=== PATIENT | female | born 1965 | race Caucasian/White ===

== ENCOUNTER 2016-12-25 05:10 | Emergency (ER) | payer OTHER ==
[2016-12-25 05:10] VITALS: BMI 31.9
[2016-12-25 05:33] VITALS: BP 136/84; PULSE 96; RESP 18; TEMP 97.7; O2SAT 100
--- NOTE | 2016-12-25 06:52 | ED PDOC ---
Arrival/HPI - General Chief Complaint: Finger,Hand,&Wrist Time Seen by Provider: 12/25/16 05:54 Historian: Patient - History of Present Illness Narrative History of Present Illness (Text): 12/25/16 06:49 51 y.o. female who is here in the ED because a few days ago, she injured her R foot and had an x-ray done. She was called back to the ED because the x-ray revealed a R 5th toe fracture, where she has pain. No other injuries. Past Medical History - Infectious Disease Hx of Infectious Diseases: None - Tetanus Immunization Tetanus Immunization: Unknown - Cardiac Hx Cardiac Disorders: Yes (hypotension) - Pulmonary Hx Respiratory Disorders: No - Neurological Hx Neurological Disorder: Yes Hx Dizziness: Yes - HEENT Hx HEENT Disorder: No - Renal Hx Renal Disorder: No - Endocrine/Metabolic Hx Endocrine Disorders: Yes Other/Comment: thyroid CA with thyroidectomy - Hematological/Oncological Hx Blood Disorders: Yes Hx Cancer: Yes (thyroid cancer) - Integumentary Hx Dermatological Disorder: No - Musculoskeletal/Rheumatological Hx Musculoskeletal Disorders: No Hx Falls: Yes - Gastrointestinal Hx Gastrointestinal Disorders: No - Genitourinary/Gynecological Hx Genitourinary Disorders: No - Psychiatric Hx Psychophysiologic Disorder: Yes Hx Anxiety: Yes Hx Depression: Yes Hx Substance Use: No - Surgical History Hx Appendectomy: Yes Hx Hysterectomy: Yes Other/Comment: tonsilectomy, thyroidectomy - Anesthesia Hx Anesthesia: Yes Hx Anesthesia Reactions: No Hx Malignant Hyperthermia: No - Suicidal Assessment Feels Threatened In Home Enviroment: No Family/Social History Family/Social History: Unknown Family HX Smoking Status: Former Smoker Hx Alcohol Use: No Hx Substance Use: No Hx Substance Use Treatment: No Allergies/Home Meds Allergies/Adverse Reactions: Allergies aspirin Allergy (Verified 08/03/16 22:55) RASH Penicillins Allergy (Verified 08/03/16 22:55) RASH Home Medications: Home Meds Medication Instructions Recorded Confirmed Levothyroxine [Synthroid] 175 mcg PO DAILY 05/22/16 08/03/16 Sertraline [Zoloft] 100 mg PO DAILY 05/22/16 08/03/16 Celecoxib [celeBREX] 100 mg PO PRN PRN 08/23/16 08/24/16 Review of Systems - Review of Systems Constitutional: Normal Musculoskeletal: Other (R 5th toe pain) Physical Exam Vital Signs Temp Pulse Resp BP Pulse Ox 04/13/17 05:27 97.7 F 96 H 18 136/84 100 Temperature: Afebrile Blood Pressure: Normal Pulse: Regular Respiratory Rate: Normal Appearance: Positive for: Well-Appearing, Non-Toxic, Comfortable Pain Distress: None Mental Status: Positive for: Alert and Oriented X 3 - Systems Exam Head: Present: Atraumatic, Normocephalic Lower Extremity: Present: Other (R 5th toe with ttp and mild swelling) Medical Decision Making ED Course and Treatment: 12/25/16 06:51 Patient with x-ray read on 12/24 showing minimally disp R 5th toe fx - martinez- taped to 4th toe - will d/c on pain meds and f/u podiatry. Disposition/Present on Arrival - Present on Arrival Any Indicators Present on Arrival: No History of DVT/PE: No History of Uncontrolled Diabetes: No Urinary Catheter: No History of Decub. Ulcer: No History Surgical Site Infection Following: None - Disposition Have Diagnosis and Disposition been Completed?: Yes Diagnosis: Fracture of fifth toe, right, closed Disposition: HOME/ ROUTINE Disposition Time: 06:55 Patient Plan: Discharge Condition: GOOD Discharge Instructions (ExitCare): Toe Fracture (ED) Additional Instructions: Keep toe martinez-taped and use open-toe shoe. Tramadol for pain and f/u podiatry. Return to the emergency department if any new concerning symptoms. Prescriptions: traMADol [Ultram] 1 tab PO Q8H PRN #20 tab PRN Reason: Pain, Severe (8-10) Referrals: Cammie Hodge DPM [Staff Provider] - Follow up with primary
== END 2016-12-25 06:54 | disposition home or self-care (01) ==
LOC: ED 05:10
DX: S92.501A Displaced unspecified fracture of right lesser toe(s), initial encounter for closed fracture (principal); X58.XXXA Exposure to other specified factors, initial encounter

== ENCOUNTER 2017-04-03 15:55 | Emergency (ER) | payer OTHER ==
[2017-04-03 15:55] VITALS: BMI 31.9
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
[2017-04-03] MEDS ORDERED: Sodium Chloride 0.9% 1,000 ML IV SCH (16:15)
[2017-04-03 16:16] VITALS: TEMP 98.1
[2017-04-03 17:09] LABS: BASO # 0.01 K/mm3 (0.0-2.0); BASO % 0.2 % (0.0-3.0); EOS # 0.2 (0.0-0.7); GRAN # 3.85 (1.4-6.5); GRAN % 58.2 % (50.0-68.0); HEMOGLOBIN 12.6 gm/dL (12.0-16.0); LYMPH % 29.8 % (22.0-35.0); MEAN CELL VOLUME 94.6 fL (80.0-105.0); MEAN CORPUSCULAR HGB CONC 32.7 g/dl (31.0-37.0); MEAN PLATELET VOLUME 11.3 fl (7.0-11.0); MONO # 0.6 (0.1-0.6); MONO % 8.8 % (1.0-6.0); PLATELET COUNT 228 10^3/uL (120.0-450.0); RBC 4.07 10^6/uL (3.5-6.1); RED CELL DISTRIBUTION WIDTH 12.6 % (11.5-14.5); WHITE BLOOD COUNT 6.6 10^3/ul (4.5-11.0)
[2017-04-03 17:12] LABS: ALB/GLOB RATIO 1.3 (1.1-1.8); ALT/SGPT 19 U/L (7-56); AST/SGOT 23 U/L (15-39); BLOOD UREA NITROGEN 14 mg/dL (7-21); CALCIUM 9.1 mg/dL (8.4-10.5); GFR AFRICAN-AMERICAN > 60; GFR NON-AFRICAN AMERICAN > 60; MAGNESIUM 2.1 mg/dL (1.7-2.2)
[2017-04-03 17:23] LABS: B-TYPE NATRIURETIC PEPTIDE 69.8 pg/mL (0-450)
[2017-04-03 17:25] LABS: TROPONIN I < 0.01 ng/mL
[2017-04-03 17:28] LABS: FREE T4 1.1 ng/dL (0.78-2.19)
--- NOTE | 2017-04-03 18:18 | RAD ---
HISTORY: chest pain and shortness of breath. COMPARISON: Chest x-ray performed 05/22/16 TECHNIQUE: Chest, one view. FINDINGS: Examination limited by habitus. LUNGS: No focal consolidation. Please note that chest x-ray has limited sensitivity for the detection of pulmonary masses. PLEURA: No significant pleural effusion identified. No definite pneumothorax . CARDIOVASCULAR: The cardiomediastinal silhouette appears within normal limits of size. OSSEOUS STRUCTURES: No acute osseous abnormality identified. VISUALIZED UPPER ABDOMEN: Unremarkable. OTHER FINDINGS: None. IMPRESSION: No focal consolidation, significant pleural effusion, or definite pneumothorax identified.
[2017-04-03 18:58] VITALS: BP 121/61; PULSE 75; RESP 18; O2SAT 97
--- NOTE | 2017-04-03 20:32 | CARD ---
APPROVED REPORT EKG Measurement Heart [id number] <Conclusion> Normal sinus rhythm Normal ECG
== END 2017-04-03 19:06 | disposition left against medical advice (07) ==
LOC: ED 15:55
DX: R07.9 Chest pain, unspecified (principal); R06.02 Shortness of breath; Z91.19 Patient's noncompliance with other medical treatment and regimen
CPT/HCPCS: 71010; 80053; 82550; 83615; 83735; 83880; 84439; 84443; 84484; 85025; 93005; 96374; 99285; J2060; J7040

== ENCOUNTER 2017-04-05 17:45 | Emergency (ER) | payer OTHER ==
[2017-04-05 17:55] VITALS: BMI 34.3
[2017-04-05 18:01] VITALS: TEMP 98.2
[2017-04-05] MEDS ORDERED: DiphenhydrAMINE 50 mg/ml Inj IVP STA (18:25)
--- NOTE | 2017-04-05 18:25 | ED PDOC ---
Arrival/HPI - General Chief Complaint: Chest Pain Time Seen by Provider: 04/05/17 17:50 Historian: Patient - History of Present Illness Narrative History of Present Illness (Text): 04/05/17 18:10 52 y/o female, pmh including hypothyroidism/hyperlipidemia/bilateral ICA stenosis 20-39%, psychiatric history including anxiety/depression, allergic to aspirin and penicillin, c/o chest pain and shortness of breath started this afternoon while watching television. Patient admits a similar symptoms in the past. Patient was seen in this ED x 2 days ago, but she signed AMA. Patient denies neck pain, hemoptysis, recent travel, sick contact, dizziness, or abnormal gait. Patient admits feeling sad, overwhelmed, and things that she used to do enjoy, they are not interesting anymore. Denies SI, HI, hallucination, or paranoia Time/Duration: Prior to Arrival Quality: Aching, Stabbing Context: Home Past Medical History - Provider Review Nursing Documentation Reviewed: Yes - Infectious Disease Hx of Infectious Diseases: None - Tetanus Immunization Tetanus Immunization: Unknown - Cardiac Hx Cardiac Disorders: Yes (hypotension) - Pulmonary Hx Respiratory Disorders: No - Neurological Hx Neurological Disorder: Yes Hx Dizziness: Yes - HEENT Hx HEENT Disorder: No - Renal Hx Renal Disorder: No - Endocrine/Metabolic Hx Endocrine Disorders: Yes Other/Comment: thyroid CA with thyroidectomy - Hematological/Oncological Hx Blood Disorders: Yes Hx Cancer: Yes (thyroid cancer) - Integumentary Hx Dermatological Disorder: No - Musculoskeletal/Rheumatological Hx Musculoskeletal Disorders: No Hx Falls: Yes - Gastrointestinal Hx Gastrointestinal Disorders: No - Genitourinary/Gynecological Hx Genitourinary Disorders: No - Psychiatric Hx Psychophysiologic Disorder: Yes Hx Anxiety: Yes Hx Depression: Yes Hx Substance Use: No - Surgical History Hx Appendectomy: Yes Hx Hysterectomy: Yes Other/Comment: tonsilectomy, thyroidectomy - Anesthesia Hx Anesthesia: Yes Hx Anesthesia Reactions: No Hx Malignant Hyperthermia: No - Suicidal Assessment Feels Threatened In Home Enviroment: No Family/Social History - Physician Review Nursing Documentation Reviewed: Yes Family/Social History: No Known Family HX Smoking Status: Former Smoker Hx Alcohol Use: No Hx Substance Use: No Hx Substance Use Treatment: No Allergies/Home Meds Allergies/Adverse Reactions: Allergies Penicillins Allergy (Verified 04/05/17 17:58) RASH aspirin Adverse Reaction (Verified 04/05/17 17:58) .bleeding Home Medications: Home Meds Medication Instructions Recorded Confirmed Levothyroxine [Synthroid] 150 mcg PO DAILY 05/22/16 04/05/17 Sertraline [Zoloft] 100 mg PO DAILY 05/22/16 04/05/17 Atorvastatin [Lipitor] 0 mg PO DIN 04/05/17 04/05/17 Ibuprofen [Advil] 0 mg PO DAILY 04/05/17 04/05/17 Review of Systems - Review of Systems Constitutional: Normal. absent: Fatigue, Weight Change, Fevers, Night Sweats Eyes: Normal ENT: Normal Respiratory: SOB. absent: Cough Cardiovascular: Chest Pain. absent: Palpitations, Edema, Calf Pain Gastrointestinal: Normal. absent: Abdominal Pain, Nausea, Vomiting Genitourinary Female: Normal. absent: Dysuria, Frequency, Hematuria Musculoskeletal: Normal Skin: Normal. absent: Rash Neurological: Normal. absent: Headache, Dizziness Endocrine: Normal Hemo/Lymphatic: Normal Psychiatric: Normal Physical Exam Vital Signs Temp Pulse Resp BP Pulse Ox 04/05/17 20:34 64 16 107/65 96 04/05/17 18:40 68 18 125/80 95 04/05/17 18:00 98.2 F 71 18 124/73 96 04/05/17 17:57 98.2 F 71 18 124/73 93 L Temperature: Afebrile Blood Pressure: Normal Pulse: Regular Respiratory Rate: Normal Appearance: Positive for: Well-Appearing, Non-Toxic, Comfortable Pain Distress: None Mental Status: Positive for: Alert and Oriented X 3 - Systems Exam Head: Present: Atraumatic, Normocephalic Pupils: Present: PERRL Extroacular Muscles: Present: EOMI Conjunctiva: Present: Normal Mouth: Present: Moist Mucous Membranes Neck: Present: Normal Range of Motion Respiratory/Chest: Present: Clear to Auscultation, Good Air Exchange, Tender to Palpation ((+) mild left costalchondral tenderness on palpation. pain is not the same reported as per patient). No: Respiratory Distress, Accessory Muscle Use Cardiovascular: Present: Regular Rate and Rhythm, Normal S1, S2. No: Murmurs Abdomen: Present: Normal Bowel Sounds. No: Tenderness, Distention, Peritoneal Signs Back: Present: Normal Inspection Upper Extremity: Present: Normal Inspection, Normal ROM, NORMAL PULSES, Neurovascularly Intact, Capillary Refill < 2s. No: Cyanosis, Edema Lower Extremity: Present: Normal Inspection, NORMAL PULSES, Normal ROM, Neurovascularly Intact, Capillary Refill < 2 s. No: Edema, CALF TENDERNESS, Temperature Abnormalties Neurological: Present: GCS=15, CN II-XII Intact, Speech Normal, Motor Func Grossly Intact, Normal Sensory Function, Normal Cerebellar Funct, Gait Normal Skin: Present: Warm, Dry, Normal Color. No: Rashes Psychiatric: Present: Alert, Oriented x 3, Anxious, Depressed Mood. No: Suicidal Ideation, Homicidal Ideation Medical Decision Making ED Course and Treatment: 04/05/17 20:59 Re-evaluation. Patient feels better. Discussed results and plan with patient who expresses understanding. All questions answered and there is agreement with the plan to discharge home with instructions. Patient stable for discharge. Return if symptoms persist or worsen. Troponin and rest of labs are unremarkable. Patient was seen by PES who gave patient referral to [facility] Re-evaluation Time: 20:59 Reassessment Condition: Re-examined, Improved - Lab Interpretations Lab Results: 04/05/17 17:55 04/05/17 17:55 Lab Results 04/05/17 17:55: Alcohol, Quantitative < 10 04/05/17 17:55: Salicylates < 1 L, Acetaminophen < 10.0 L 04/05/17 17:55: Sodium 139, Potassium 3.7, Chloride 104, Carbon Dioxide 25, Anion Gap 14, BUN 12, Creatinine 0.7, Est GFR ( Amer) > 60, Est GFR (Non- Af Amer) > 60, Random Glucose 90, Calcium 8.7, Magnesium 1.9, Total Bilirubin 1.1, AST 17, ALT 19, Alkaline Phosphatase 37 L, Lactate Dehydrogenase 359, Total Creatine Kinase 33 L, Troponin I < 0.01, NT-Pro-B Natriuret Pep 115, Total Protein 7.0, Albumin 4.0, Globulin 3.1, Albumin/Globulin Ratio 1.3 04/05/17 17:55: D-Dimer, Quantitative 0.39 04/05/17 17:55: WBC 6.6, RBC 3.99, Hgb 12.4, Hct 37.7, MCV 94.5, MCH 31.1, MCHC 32.9, RDW 12.5, Plt Count 213, MPV 11.6 H, Gran % 54.9, Lymph % (Auto) 34.2, [place] % (Auto) 7.2 H, Eos % (Auto) 3.5, Baso % (Auto) 0.2, Gran # 3.65, Lymph # 2.3, [place] # 0.5, Eos # 0.2, Baso # 0.01 I have reviewed the lab results: Yes Interpretation: No clinic. lab abnormalty - RAD Interpretation Radiology Orders: 04/05/17 18:14 CHEST PORTABLE [RAD] Stat - EKG Interpretation Interpreted by ED Physician: Yes (NSR @ [address] changes. Normal interval ) Type: 12 lead EKG Comparison: No previous EKG avail. - Medication Orders Current Medication Orders: Discontinued Medications Dexamethasone (Decadron Inj) 10 mg IVP STAT STA Stop: 04/05/17 18:27 Last Admin: 04/05/17 18:50 Dose: 10 mg Diphenhydramine HCl (Benadryl) 50 mg IVP STAT STA Stop: 04/05/17 18:26 Last Admin: 04/05/17 18:50 Dose: 50 mg Sodium Chloride (Sodium Chloride 0.9%) 500 mls @ 999 mls/hr IV .Q31M STA Stop: 04/05/17 18:56 Last Admin: 04/05/17 18:49 Dose: 999 mls/hr Metoclopramide HCl (Reglan) 10 mg IVP STAT STA Stop: 04/05/17 18:26 Last Admin: 04/05/17 18:50 Dose: 10 mg Morphine Sulfate (Morphine) 2 mg IVP STAT STA Stop: 04/05/17 18:27 Last Admin: 04/05/17 18:50 Dose: 2 mg Disposition/Present on Arrival - Present on Arrival Any Indicators Present on Arrival: No History of DVT/PE: No History of Uncontrolled Diabetes: No Urinary Catheter: No History of Decub. Ulcer: No History Surgical Site Infection Following: None - Disposition Have Diagnosis and Disposition been Completed?: Yes Diagnosis: Non-cardiac chest pain, Anxiety Disposition: HOME/ ROUTINE Disposition Time: 21:02 Patient Plan: Discharge Patient Problems: Current Active Problems Problem Status Onset Non-cardiac chest pain Acute Anxiety Acute Condition: GOOD Discharge Instructions (ExitCare): Panic Attack (ED) Additional Instructions: Call private doctor for follow up visit in 1-2 days. Call Mental Health Clinic. Return to emergency if Chest pain returns Referrals: Tino Schulte, [Primary Care Provider] - Follow up with primary [facility] [Outside] - Follow up with primary [facility] [Outside] - Follow up with primary [facility] [Outside] - Follow up with primary
[2017-04-05] MEDS ORDERED: Sodium Chloride 0.9% 500 ML IV STA (18:26)
[2017-04-05] MEDS ORDERED: Morphine 2 mg/ml ISec IVP STA (18:26)
[2017-04-05 18:48] LABS: BASO # 0.01 K/mm3 (0.0-2.0); BASO % 0.2 % (0.0-3.0); EOS # 0.2 (0.0-0.7); EOS % 3.5 % (1.5-5.0); GRAN # 3.65 (1.4-6.5); GRAN % 54.9 % (50.0-68.0); HEMOGLOBIN 12.4 gm/dL (12.0-16.0); LYMPH # 2.3 (1.2-3.4); LYMPH % 34.2 % (22.0-35.0); MEAN CELL VOLUME 94.5 fL (80.0-105.0); MEAN CORPUSCULAR HEMOGLOBIN 31.1 pg (25.0-35.0); MEAN CORPUSCULAR HGB CONC 32.9 g/dl (31.0-37.0); MEAN PLATELET VOLUME 11.6 fl (7.0-11.0); MONO # 0.5 (0.1-0.6); MONO % 7.2 % (1.0-6.0); PLATELET COUNT 213 10^3/uL (120.0-450.0); RBC 3.99 10^6/uL (3.5-6.1); RED CELL DISTRIBUTION WIDTH 12.5 % (11.5-14.5); WHITE BLOOD COUNT 6.6 10^3/ul (4.5-11.0)
[2017-04-05 18:50] LABS: ALB/GLOB RATIO 1.3 (1.1-1.8); ALT/SGPT 19 U/L (7-56); AST/SGOT 17 U/L (15-39); BLOOD UREA NITROGEN 12 mg/dL (7-21); CALCIUM 8.7 mg/dL (8.4-10.5); GFR AFRICAN-AMERICAN > 60; GFR NON-AFRICAN AMERICAN > 60; MAGNESIUM 1.9 mg/dL (1.7-2.2); SALICYLATE < 1 mg/dL (2.0-20.0)
[2017-04-05 18:57] LABS: ACETAMINOPHEN < 10.0 ug/ml (10.0-20.0)
[2017-04-05 19:02] LABS: B-TYPE NATRIURETIC PEPTIDE 115 pg/mL (0-450)
[2017-04-05 19:09] LABS: TROPONIN I < 0.01 ng/mL
[2017-04-05 20:34] VITALS: BP 107/65; PULSE 64; RESP 16; O2SAT 96
[2017-04-05 21:50] LABS: PH,URINE 7.5 (4.7-8.0); URINE BILIRUBIN NEGATIVE (NEGATIVE); URINE BLOOD NEGATIVE (NEGATIVE); URINE GLUCOSE (UA) NEGATIVE (NEGATIVE); URINE LEUKOCYTE ESTERASE NEGATIVE Leu/uL (NEGATIVE); URINE NITRATE NEGATIVE (NEGATIVE); URINE PROTEIN NEGATIVE mg/dL (<30 mg/dL); URINE UROBILINOGEN 0.2 E.U./dL (<1 E.U./dL)
[2017-04-05 21:55] LABS: URINE APPEARANCE CLEAR (CLEAR); URINE COLOR YELLOW (YELLOW)
[2017-04-05 22:14] LABS: BARBITURATES, UR NEGATIVE (NEGATIVE); BENZODIAZEPINES, UR NEGATIVE (NEGATIVE); OPIATES, UR POSITIVE (NEGATIVE); PHENCYCLIDINE, UR NEGATIVE (NEGATIVE)
--- NOTE | 2017-04-06 09:34 | RAD ---
HISTORY: sob/cp COMPARISON: 04/03/2017 FINDINGS: LUNGS: No active pulmonary disease. PLEURA: No significant pleural effusion identified, no pneumothorax apparent. CARDIOVASCULAR: Normal. OSSEOUS STRUCTURES: No significant abnormalities. VISUALIZED UPPER ABDOMEN: Normal. OTHER FINDINGS: None. IMPRESSION: No active disease.
--- NOTE | 2017-04-06 21:16 | CARD ---
APPROVED REPORT EKG Measurement Heart [id number] <Conclusion> Normal sinus rhythm Low voltage QRS Possible Inferior infarct, age undetermined Abnormal ECG
== END 2017-04-05 21:26 | disposition home or self-care (01) ==
LOC: ED 17:45
DX: R07.89 Other chest pain (principal); F41.9 Anxiety disorder, unspecified; E78.5 Hyperlipidemia, unspecified; E03.9 Hypothyroidism, unspecified
CPT/HCPCS: 71010; 80053; 80320; 80324; 80329; 80345; 80346; 80349; 80353; 80358; 80361; 81003; 82550; 83615; 83735; 83880; 83992; 84484; 85025; 85378; 93005; 96374; 96375; 99285; J1100; J1200; J2270; J2765; J7040

== ENCOUNTER 2017-04-19 23:19 | Emergency (ER) | payer OTHER ==
[2017-04-19 23:37] VITALS: BMI 31.3
[2017-04-20 00:54] LABS: BASO # 0.01 K/mm3 (0.0-2.0); BASO % 0.1 % (0.0-3.0); EOS # 0.2 (0.0-0.7); EOS % 2.7 % (1.5-5.0); GRAN # 4.34 (1.4-6.5); GRAN % 56.8 % (50.0-68.0); HEMOGLOBIN 11.5 gm/dL (12.0-16.0); LYMPH # 2.6 (1.2-3.4); MEAN CELL VOLUME 94.1 fL (80.0-105.0); MEAN CORPUSCULAR HEMOGLOBIN 31.1 pg (25.0-35.0); MEAN PLATELET VOLUME 11.6 fl (7.0-11.0); MONO # 0.5 (0.1-0.6); MONO % 6.4 % (1.0-6.0); PLATELET COUNT 205 10^3/uL (120.0-450.0); RED CELL DISTRIBUTION WIDTH 12.7 % (11.5-14.5); WHITE BLOOD COUNT 7.7 10^3/ul (4.5-11.0)
[2017-04-20 00:57] LABS: AST/SGOT 17 U/L (15-39); BLOOD UREA NITROGEN 20 mg/dL (7-21); GFR AFRICAN-AMERICAN > 60; GFR NON-AFRICAN AMERICAN > 60
[2017-04-20 01:00] LABS: INR 1.14 (0.93-1.08); PARTIAL THROMBOPLASTIN TIME 26.3 Seconds (23.7-30.8); PROTHROMBIN TIME 12.3 Seconds (9.9-11.8)
[2017-04-20 01:27] LABS: ALB/GLOB RATIO 1.3 (1.1-1.8); ALBUMIN 3.7 g/dL (3.0-4.8); ALT/SGPT 20 U/L (7-56)
[2017-04-20 01:35] LABS: CALCIUM 8.8 mg/dL (8.4-10.5)
--- NOTE | 2017-04-20 01:38 | ED PDOC ---
Arrival/HPI - General Chief Complaint: Lower Extremity Problem/Injury Time Seen by Provider: 04/20/17 00:01 Historian: Patient - History of Present Illness Narrative History of Present Illness (Text): 04/20/17 01:35 52-year-old female presents to the emergency room for a 2 hour history of petechial rash to the medial aspect of the right thigh that is painless, nonpruritic and started abruptly, however is not spreading. Patient states that she called her PMD immediately and was advised to go to the hospital to get blood test done to check her platelets. Patient reports that the only medication she takes Zoloft and Synthroid. Otherwise patient denies any trauma, injury, fever, chills, headache, dizziness, chest pain, shortness of breath, vomiting, diarrhea, abdominal pain, urinary symptoms, recent travel, recent illness, new/change in medications. She states that she is in otherwise in good health. Past Medical History - Provider Review Nursing Documentation Reviewed: Yes - Infectious Disease Hx of Infectious Diseases: None - Tetanus Immunization Tetanus Immunization: Unknown - Cardiac Hx Cardiac Disorders: Yes (hypotension) - Pulmonary Hx Respiratory Disorders: No - Neurological Hx Neurological Disorder: Yes Hx Dizziness: Yes - HEENT Hx HEENT Disorder: No - Renal Hx Renal Disorder: No - Endocrine/Metabolic Hx Endocrine Disorders: Yes Other/Comment: thyroid CA with thyroidectomy - Hematological/Oncological Hx Blood Disorders: Yes Hx Cancer: Yes (thyroid cancer) - Integumentary Hx Dermatological Disorder: No - Musculoskeletal/Rheumatological Hx Musculoskeletal Disorders: No Hx Falls: Yes - Gastrointestinal Hx Gastrointestinal Disorders: No - Genitourinary/Gynecological Hx Genitourinary Disorders: No - Psychiatric Hx Psychophysiologic Disorder: Yes Hx Anxiety: Yes Hx Depression: Yes Hx Substance Use: No - Surgical History Hx Appendectomy: Yes Hx Hysterectomy: Yes Other/Comment: tonsilectomy, thyroidectomy - Anesthesia Hx Anesthesia: Yes Hx Anesthesia Reactions: No Hx Malignant Hyperthermia: No - Suicidal Assessment Feels Threatened In Home Enviroment: No Family/Social History - Physician Review Nursing Documentation Reviewed: Yes Family/Social History: No Known Family HX Smoking Status: Former Smoker Hx Alcohol Use: No Hx Substance Use: No Hx Substance Use Treatment: No Allergies/Home Meds Allergies/Adverse Reactions: Allergies Penicillins Allergy (Verified 04/19/17 23:37) RASH aspirin Adverse Reaction (Verified 04/19/17 23:37) .bleeding Home Medications: Home Meds Medication Instructions Recorded Confirmed Levothyroxine [Synthroid] 150 mcg PO DAILY 05/22/16 04/19/17 Sertraline [Zoloft] 100 mg PO DAILY 05/22/16 04/19/17 Atorvastatin [Lipitor] 0 mg PO DIN 04/05/17 04/19/17 Ibuprofen [Advil] 0 mg PO DAILY 04/05/17 04/19/17 Review of Systems - Review of Systems Constitutional: Normal. absent: Fatigue, Weight Change, Fevers ENT: Normal. absent: Hearing Changes, Tinnitus, Rhinorrhea Respiratory: Normal. absent: SOB, Cough, Sputum Cardiovascular: Normal. absent: Chest Pain, Palpitations, Edema Gastrointestinal: Normal. absent: Abdominal Pain, Stool Changes Skin: Normal, Rash (petechial rash to the R medial thigh), Other (insect bites) . absent: Pruritis, Skin Lesions Neurological: Normal. absent: Headache, Dizziness, Focal Weakness Hemo/Lymphatic: Normal. absent: Adenopathy, Easy Bleeding, Easy Bruising Physical Exam - Physical Exam Narrative Physical Exam (Text): 04/20/17 01:38 GENERAL APPEARANCE: Patient is awake, alert, oriented x 3, in no acute distress. SKIN: Warm, dry; (-) cyanosis, (+) non-tender, non-blanching petechial rash to the R medial distal thigh, (+) 2 insect bites to the medial R thigh. EYES: (-) conjunctival pallor. ENMT: Mucous membranes moist. Pharynx : clear with (-) erythema, (-) lesions. NECK: (-) tenderness, (-) stiffness, (-) lymphadenopathy, (-) JVD. CHEST AND RESPIRATORY: (-) rash, (-) chest wall tenderness. Lungs: (-) rales , (-) rhonchi, (-) wheezes, (-) rub; breath sounds equal bilaterally. HEART AND CARDIOVASCULAR: (-) irregularity; (-) murmur, (-) gallop, (-) rub. ABDOMEN AND GI: Soft; (-) distention, (-) tenderness, (-) palpable pulsatile mass. EXTREMITIES: (-) deformity; (-) edema, (-) calf tenderness. (+) distal pulses. NEURO AND PSYCH: Mental status as above. Cranial nerves grossly intact; strength symmetric. Vital Signs Temp Pulse Resp BP Pulse Ox 04/20/17 02:00 98.0 F 84 18 122/70 98 04/19/17 23:40 98.2 F 88 17 125/67 96 Medical Decision Making ED Course and Treatment: 04/20/17 01:39 52-year-old female presents to the emergency room for a 2 hour history of painless, non-pruritic petechial rash to the medial aspect of the right thigh. Plan: - CBC - CMP - Coags Lab results reviewed and are within normal limits, platelet count is normal. Patient is requesting for a Rx for her insect bites. Patient advised to follow up with primary care physician in 1-2 days without fail. Advised to take Rx as prescribed. Return to the emergency room at any time for any new or worsening symptoms. Patient states she fully agrees with and understands discharge instructions. States that she agrees with the plan and disposition. Verbalized and repeated discharge instructions and plan. I have given the patient opportunity to ask any additional questions. - Lab Interpretations Lab Results: 04/20/17 00:40 04/20/17 01:00 Lab Results 04/20/17 01:00: Sodium 138, Potassium 3.9, Chloride 104, Carbon Dioxide 26, Anion Gap 12, BUN 20, Creatinine 0.8, Est GFR ( Amer) > 60, Est GFR (Non- Af Amer) > 60, Random Glucose 119 H, Calcium 8.8, Total Bilirubin 0.5, AST 17, ALT 20, Alkaline Phosphatase 40, Total Protein 6.5, Albumin 3.7, Globulin 2.9, Albumin/Globulin Ratio 1.3 04/20/17 00:40: PT 12.3 H, INR 1.14 H, APTT 26.3 04/20/17 00:40: WBC 7.7, RBC 3.70, Hgb 11.5 L, Hct 34.8 L, MCV 94.1, MCH 31.1, MCHC 33.0, RDW 12.7, Plt Count 205, MPV 11.6 H, Gran % 56.8, Lymph % (Auto) 34.0 , [place] % (Auto) 6.4 H, Eos % (Auto) 2.7, Baso % (Auto) 0.1, Gran # 4.34, Lymph # 2.6, [place] # 0.5, Eos # 0.2, Baso # 0.01 - PA / CORK COMPOUNDER / Resident Statement MD/DO has reviewed & agrees with the documentation as recorded. Disposition/Present on Arrival - Present on Arrival Any Indicators Present on Arrival: No History of DVT/PE: No History of Uncontrolled Diabetes: No Urinary Catheter: No History of Decub. Ulcer: No History Surgical Site Infection Following: None - Disposition Have Diagnosis and Disposition been Completed?: Yes Diagnosis: Petechial rash Disposition: HOME/ ROUTINE Disposition Time: :41 Patient Plan: Discharge Condition: STABLE Discharge Instructions (ExitCare): Acute Rash (ED) Print Language: [place] Additional Instructions: Thank you for letting us take care of you today. You were treated for petechial rash. The emergency medical care you received today was directed at your acute symptoms. Return to the Emergency Department if your symptoms worsen, do not improve, or if you have any other problems. Please contact your doctor in 2 days for re-evaluation and follow up. Bring any paperwork you were given at discharge with you along with any medications you are taking to your follow up visit. Our treatment cannot replace ongoing medical care by a primary care provider (PCP) outside of the emergency department. Thank you for allowing the [employer] [facility] team to be part of your care today. Prescriptions: Hydrocortisone Marie 0.2% Cr [Westcort] 1 ea TP BID #15 tube valACYclovir [Valtrex] 500 mg PO TID #21 tab Forms: [employer] (Botswanan)
[2017-04-20 02:36] VITALS: BP 122/70; PULSE 84; RESP 18; TEMP 98; O2SAT 98
== END 2017-04-20 02:35 | disposition home or self-care (01) ==
LOC: ED 23:19
DX: R23.3 Spontaneous ecchymoses (principal); R21 Rash and other nonspecific skin eruption

== ENCOUNTER 2018-05-24 18:55 | Emergency (ER) | payer OTHER ==
[2018-05-24 18:55] VITALS: BMI 31.3
[2018-05-24 19:36] VITALS: BP 108/68; PULSE 86; RESP 18; TEMP 98.3; O2SAT 97
--- NOTE | 2018-05-24 20:59 | ED PDOC ---
Arrival/HPI <Krzysztof Mcdonald - Last Filed: 05/24/18 21:09> - General Historian: Patient - History of Present Illness Time/Duration: < week Symptom Onset: Gradual Symptom Course: Unchanged Activities at Onset: Light Context: Home <Jeanette Kaur PA-C - Last Filed: 05/24/18 22:32> - General Chief Complaint: Female Genitourinary Time Seen by Provider: 05/24/18 19:49 - History of Present Illness Narrative History of Present Illness (Text): 05/24/18 53 year old female who presents to the Emergency department complaining of right lower back pain for the past few days. Patient states pain is worse she bends over or with any movement. Patient denies any trauma, injury, fever, chills, urinary complaints, bladder/bowel incontinence, numbness, weakness, or any other complaints. Patient states she has an appointment with a general car supervisor yard because of a positive SEGUNDO test performed by her PMD. (Jeanette Lemons) Past Medical History - Provider Review Nursing Documentation Reviewed: Yes - Infectious Disease Hx of Infectious Diseases: None - Tetanus Immunization Tetanus Immunization: Unknown - Cardiac Hx Cardiac Disorders: Yes (hypotension) - Pulmonary Hx Respiratory Disorders: No - Neurological Hx Neurological Disorder: Yes Hx Dizziness: Yes - HEENT Hx HEENT Disorder: No - Renal Hx Renal Disorder: No - Endocrine/Metabolic Hx Endocrine Disorders: Yes Other/Comment: thyroid CA with thyroidectomy - Hematological/Oncological Hx Blood Disorders: Yes Hx Cancer: Yes (thyroid cancer) - Integumentary Hx Dermatological Disorder: No - Musculoskeletal/Rheumatological Hx Musculoskeletal Disorders: Yes Hx Falls: Yes - Gastrointestinal Hx Gastrointestinal Disorders: No - Genitourinary/Gynecological Hx Genitourinary Disorders: No - Psychiatric Hx Psychophysiologic Disorder: Yes Hx Anxiety: Yes Hx Depression: Yes Hx Substance Use: No - Surgical History Hx Appendectomy: Yes Hx Hysterectomy: Yes Other/Comment: tonsilectomy, thyroidectomy - Anesthesia Hx Anesthesia: Yes Hx Anesthesia Reactions: No Hx Malignant Hyperthermia: No - Suicidal Assessment Feels Threatened In Home Enviroment: No <Jeanette Kaur PA-C - Last Filed: 05/24/18 22:32> Family/Social History - Physician Review Nursing Documentation Reviewed: Yes Family/Social History: Unknown Family HX Smoking Status: Former Smoker Hx Alcohol Use: No Hx Substance Use: No Hx Substance Use Treatment: No <Jeanette Kaur PA-C - Last Filed: 05/24/18 22:32> Allergies/Home Meds <Krzysztof Mcdonald - Last Filed: 05/24/18 21:09> <Jeanette Kaur PA-C - Last Filed: 05/24/18 22:32> Allergies/Adverse Reactions: Allergies Penicillins Allergy (Verified 05/24/18 19:30) RASH aspirin Adverse Reaction (Verified 05/24/18 19:30) .bleeding Home Medications: Home Meds Medication Instructions Recorded Confirmed Levothyroxine [Synthroid] 150 mcg PO DAILY 05/22/16 05/24/18 Sertraline [Zoloft] 100 mg PO DAILY 05/22/16 05/24/18 Atorvastatin [Lipitor] 10 mg PO DIN 04/05/17 05/24/18 Review of Systems - Physician Review All systems were reviewed & negative as marked: Yes - Review of Systems Constitutional: Normal. absent: Fevers Eyes: Normal ENT: Normal Respiratory: Normal. absent: SOB, Cough Cardiovascular: Normal. absent: Chest Pain Gastrointestinal: Normal. absent: Abdominal Pain, Diarrhea, Nausea, Vomiting Genitourinary Female: Normal. absent: Dysuria, Frequency, Hematuria, Urine Output Changes Musculoskeletal: Back Pain. absent: Neck Pain Skin: Normal. absent: Rash Neurological: Normal. absent: Headache, Dizziness Endocrine: Normal Hemo/Lymphatic: Normal Psychiatric: Normal <Jeanette Kaur PA-C - Last Filed: 05/24/18 22:32> Physical Exam Vital Signs Reviewed: Yes Temperature: Afebrile Blood Pressure: Normal Pulse: Regular Respiratory Rate: Normal Appearance: Positive for: Well-Appearing, Non-Toxic, Comfortable Pain Distress: Mild Mental Status: Positive for: Alert and Oriented X 3 - Systems Exam Head: Present: Atraumatic, Normocephalic Pupils: Present: PERRL Extroacular Muscles: Present: EOMI Conjunctiva: Present: Normal Mouth: Present: Moist Mucous Membranes Neck: Present: Normal Range of Motion Respiratory/Chest: Present: Clear to Auscultation, Good Air Exchange. No: Respiratory Distress, Accessory Muscle Use Cardiovascular: Present: Regular Rate and Rhythm, Normal S1, S2. No: Murmurs Abdomen: No: Tenderness, Distention, Peritoneal Signs Back: Present: Paraspinal Tenderness (Right paralumbar tenderness). No: CVA Tenderness, Midline Tenderness, Pain with Leg Raise (negative straight leg test) Upper Extremity: Present: Normal Inspection. No: Cyanosis, Edema Lower Extremity: Present: Normal Inspection. No: Edema Neurological: Present: GCS=15, CN II-XII Intact, Speech Normal Skin: Present: Warm, Dry, Normal Color. No: Rashes Psychiatric: Present: Alert, Oriented x 3, Normal Insight, Normal Concentration <Jeanette Kaur PA-C - Last Filed: 05/24/18 22:32> Vital Signs Temp Pulse Resp BP Pulse Ox 05/24/18 19:31 98.3 F 86 18 108/68 97 Medical Decision Making <Krzysztof Mcdonald - Last Filed: 05/24/18 21:09> <Jeanette Kaur PA-C - Last Filed: 05/24/18 22:32> ED Course and Treatment: 05/24/18 20:56 Plan : - UA - Ucx - Flexeril PO Patient refusing urine test. Advised to follow up with primary care physician in 1-2 days without fail. Advised to take otc tylenol and Rx medication as prescribed. Return to the emergency room at any time for any new or worsening symptoms. Patient states she fully agrees with and understands discharge instructions. States that she agrees with the plan and disposition. Verbalized and repeated discharge instructions and plan. I have given the patient opportunity to ask any additional questions. Patient left prior to receiving flexeril medication. Verbal d/c instructions given, as the patient left without her d/c papers. (Jeanette Kaur PA-C) - Medication Orders Current Medication Orders: Discontinued Medications Cyclobenzaprine HCl (Flexeril) 10 mg PO STAT STA Stop: 05/24/18 20:57 - PA / ANTIQUE CLOCK REPAIRER / Resident Statement LON has reviewed & agrees with the documentation as recorded. <Krzysztof Mcdonald - Last Filed: 05/24/18 21:09> - PA / ANTIQUE CLOCK REPAIRER / Resident Statement LON has reviewed & agrees with the documentation as recorded. - Scribe Statement The provider has reviewed the documentation as recorded by the Scribe <Jeanette Kaur PA-C - Last Filed: 05/24/18 22:32> - Scribe Statement Tabatha Tapia Provider Scribe Attestation: All medical record entries made by the Scribe were at my direction and personally dictated by me. I have reviewed the chart and agree that the record accurately reflects my personal performance of the history, physical exam, medical decision making, and the department course for this patient. I have also personally directed, reviewed, and agree with the discharge instructions and disposition. (Jeanette Kaur PA-C) Disposition/Present on Arrival <Krzysztof Mcdonald - Last Filed: 05/24/18 21:09> - Present on Arrival Any Indicators Present on Arrival: No History of DVT/PE: No History of Uncontrolled Diabetes: No Urinary Catheter: No History of Decub. Ulcer: No History Surgical Site Infection Following: None - Disposition Have Diagnosis and Disposition been Completed?: Yes Disposition Time: 20:45 Patient Plan: Discharge <Jeanette Kaur PA-C - Last Filed: 05/24/18 22:32> - Disposition Diagnosis: Low back pain Disposition: HOME/ ROUTINE Patient Problems: Current Active Problems Problem Status Onset Low back pain Acute Condition: STABLE Discharge Instructions (ExitCare): Low Back Pain in Adults Additional Instructions: Thank you for letting us take care of you today. You were treated for low back pain. The emergency medical care you received today was directed at your acute symptoms. If you were prescribed any medication, please fill it and take as directed along with over the counter tylenol as needed for pain. It may take several days for your symptoms to resolve. Return to the Emergency Department if your symptoms worsen, do not improve, or if you have any other problems. Please contact your primary care doctor and your general car supervisor yard in 2 days for re -evaluation and follow up. Bring any paperwork you were given at discharge with you along with any medications you are taking to your follow up visit. Our treatment cannot replace ongoing medical care by a primary care provider (PCP) outside of the emergency department. Thank you for allowing the [facility] team to be part of your care today. Prescriptions: Cyclobenzaprine [Cyclobenzaprine HCl] 10 mg PO TID PRN #15 tab PRN Reason: Pain, Moderate (4-7) Referrals: Reji Vitale MD [Primary Care Provider] - Follow up with primary Forms: [employer] (Ivorian)
== END 2018-05-24 21:10 | disposition home or self-care (01) ==
LOC: ED 18:55
DX: M54.5 Low back pain (principal); Z87.891 Personal history of nicotine dependence

== ENCOUNTER 2018-06-29 14:51 | Emergency (ER) | payer OTHER ==
[2018-06-29 15:25] VITALS: TEMP 97.6
[2018-06-29 15:26] VITALS: BMI 32.2
[2018-06-29] MEDS ORDERED: Oxycodone/Acetaminophen 5/325 mg Tab PO STA (15:43)
--- NOTE | 2018-06-29 15:46 | ED PDOC ---
Arrival/HPI - General Chief Complaint: Trauma Time Seen by Provider: 06/29/18 15:31 Historian: Patient - History of Present Illness Narrative History of Present Illness (Text): 06/29/18 15:43 53yo female with history of anxiety who was bib EMS for complaint of left knee pain s/p trauma. states she fell this morning while getting out shower. The daughter by the bedside who translated states she was able to ambulate s/p the trauma, but started having pain this afternoon. Pain states she is unable to flex her knee secondary to the pain. She did not take any analgesia. She also complaint of yellow productive cough x 2days. Denies fever, chills, SOB, diaphoresis, chest pain, sick contact, travel, any other complaint. Past Medical History - Provider Review Nursing Documentation Reviewed: Yes - Infectious Disease Hx of Infectious Diseases: None - Tetanus Immunization Tetanus Immunization: Unknown - Cardiac Hx Cardiac Disorders: Yes (hypotension) - Pulmonary Hx Respiratory Disorders: No - Neurological Hx Neurological Disorder: Yes Hx Dizziness: Yes - HEENT Hx HEENT Disorder: No - Renal Hx Renal Disorder: No - Endocrine/Metabolic Hx Endocrine Disorders: Yes Other/Comment: thyroid CA with thyroidectomy - Hematological/Oncological Hx Blood Disorders: Yes Hx Cancer: Yes (thyroid cancer) - Integumentary Hx Dermatological Disorder: No - Musculoskeletal/Rheumatological Hx Musculoskeletal Disorders: Yes Hx Falls: Yes - Gastrointestinal Hx Gastrointestinal Disorders: No - Genitourinary/Gynecological Hx Genitourinary Disorders: No - Psychiatric Hx Psychophysiologic Disorder: Yes Hx Anxiety: Yes Hx Depression: Yes Hx Substance Use: No - Surgical History Hx Appendectomy: Yes Hx Hysterectomy: Yes Other/Comment: tonsilectomy, thyroidectomy - Anesthesia Hx Anesthesia: Yes Hx Anesthesia Reactions: No Hx Malignant Hyperthermia: No - Suicidal Assessment Feels Threatened In Home Enviroment: No Family/Social History - Physician Review Nursing Documentation Reviewed: Yes Family/Social History: Unknown Family HX Smoking Status: Former Smoker Hx Alcohol Use: No Hx Substance Use: No Hx Substance Use Treatment: No Allergies/Home Meds Allergies/Adverse Reactions: Allergies ibuprofen [From Motrin] Allergy (Verified 06/29/18 15:40) SHORTNESS OF BREATH Penicillins Allergy (Verified 05/24/18 19:30) RASH aspirin Adverse Reaction (Verified 05/24/18 19:30) .bleeding Home Medications: Home Meds Medication Instructions Recorded Confirmed Levothyroxine [Synthroid] 150 mcg PO DAILY 05/22/16 05/24/18 Sertraline [Zoloft] 100 mg PO DAILY 05/22/16 05/24/18 Atorvastatin [Lipitor] 10 mg PO DIN 04/05/17 05/24/18 Review of Systems - Physician Review All systems were reviewed & negative as marked: Yes - Review of Systems Constitutional: Normal Eyes: Normal ENT: Normal Respiratory: Cough, Sputum Cardiovascular: Normal Gastrointestinal: Normal Genitourinary Female: Normal Musculoskeletal: Arthralgias (Right knee) Skin: Normal Neurological: Normal Endocrine: Normal Hemo/Lymphatic: Normal Psychiatric: Normal Physical Exam Vital Signs Temp Pulse Resp BP Pulse Ox 06/29/18 15:26 97.6 F 70 18 97 06/29/18 15:15 97.6 F 72 18 116/75 97 Medical Decision Making ED Course and Treatment: 06/29/18 20:32 Pt presented for stated history. Her pain was controlled in ED with medication. Right knee xray - No acute fracture/dislocation CXR NAD Pt was not in any distress in ED Result was DW the pt. DADA wrap applied. Cane given. Advised to RICE knee Rx of Tessalon, albuterol and tramadol given and pt was referred t ortho/pmd - RAD Interpretation Radiology Orders: 06/29/18 15:42 CHEST TWO VIEWS (PA/LAT) [RAD] Stat KNEE W PATELLA RIGHT 3 VIEW [RAD] Stat Disposition/Present on Arrival - Present on Arrival Any Indicators Present on Arrival: No History of DVT/PE: No History of Uncontrolled Diabetes: No Urinary Catheter: No History of Decub. Ulcer: No History Surgical Site Infection Following: None - Disposition Have Diagnosis and Disposition been Completed?: Yes Diagnosis: Cough, Knee sprain Disposition: HOME/ ROUTINE Disposition Time: 18:15 Patient Plan: Discharge Condition: STABLE Discharge Instructions (ExitCare): Cough in Adults, Knee Sprain (DC) Additional Instructions: Follow up with your doctor/orthopedist Rest, Ice, compress and elevate knee Return to ED for any new or worsening symptoms Prescriptions: RX: Albuterol HFA [Ventolin HFA 90 mcg/actuation (8 g)] 2 puff IH Q6 #1 puff Benzonatate [Tessalon Perle] 100 mg PO TID #20 capsule RX: traMADol [Ultram] 50 mg PO Q6 #9 tab Referrals: Reji Vitale MD [Primary Care Provider] - Follow up with primary Tank Gatica DO [Staff Provider] - Follow up with primary Forms: [employer] (Persian)
[2018-06-29 18:02] VITALS: O2SAT 98
--- NOTE | 2018-06-29 18:12 | RAD ---
Date of service: 06/29/2018 PROCEDURE: Right Knee Radiographs. HISTORY: knee pain s/p trauma COMPARISON: None. FINDINGS: BONES: Normal. No fracture. JOINTS: Normal. No osteoarthritis. JOINT EFFUSION: None. OTHER FINDINGS: None. IMPRESSION: No acute findings related to/accounting for the clinical presentation.
--- NOTE | 2018-06-29 18:13 | RAD ---
Date of service: 06/29/2018 HISTORY: Cough. COMPARISON: 04/05/2017 TECHNIQUE: Chest PA and lateral FINDINGS: LUNGS: No active pulmonary disease. PLEURA: No significant pleural effusion identified. No pneumothorax apparent. CARDIOVASCULAR: No radiographic findings to suggest acute or significant cardiovascular disease. OSSEOUS STRUCTURES: No significant abnormalities. VISUALIZED UPPER ABDOMEN: Normal. OTHER FINDINGS: None. IMPRESSION: No active disease. No significant interval change compared to the prior examination(s).
[2018-06-29 18:26] VITALS: BP 110/60; PULSE 66; RESP 17
== END 2018-06-29 18:32 | disposition home or self-care (01) ==
LOC: ED 14:51
DX: S83.91XA Sprain of unspecified site of right knee, initial encounter (principal); W01.0XXA Fall on same level from slipping, tripping and stumbling without subsequent striking against object, initial encounter; Y92.002 Bathroom of unspecified non-institutional (private) residence as the place of occurrence of the external cause; R05 Cough

== ENCOUNTER 2018-11-20 18:37 | Observation (INO) | payer OTHER ==
[2018-11-20 18:37] VITALS: BMI 32.2
--- NOTE | 2018-11-20 19:25 | ED PDOC ---
Arrival/HPI - General Chief Complaint: Weakness/Neurological Deficit Time Seen by Provider: 11/20/18 19:11 Historian: Patient - History of Present Illness Narrative History of Present Illness (Text): 11/20/18 19:22 A 53 year old female, whose past medical history includes depression, hyperlipidemia, "leaky heart valve," and hypothyroidism, presents to the emergency department complaining of intermittent pressure-like chest discomfort. Patient reports also experiencing weakness and right lower leg discomfort. Patient notes also having occasional shortness of breath. Patient denies any trauma, fever, chills, or any other complaints at this time. 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 PMD: Dr. Reji Vitale Past Medical History - Provider Review Nursing Documentation Reviewed: Yes - Infectious Disease Hx of Infectious Diseases: C.diff - Tetanus Immunization Tetanus Immunization: Unknown - Cardiac Hx Cardiac Disorders: Yes (hypotension) - Pulmonary Hx Respiratory Disorders: No - Neurological Hx Neurological Disorder: Yes Hx Dizziness: Yes - HEENT Hx HEENT Disorder: No - Renal Hx Renal Disorder: No - Endocrine/Metabolic Hx Endocrine Disorders: Yes Other/Comment: thyroid CA with thyroidectomy - Hematological/Oncological Hx Blood Disorders: Yes Hx Cancer: Yes (thyroid cancer) - Integumentary Hx Dermatological Disorder: No - Musculoskeletal/Rheumatological Hx Musculoskeletal Disorders: Yes Hx Falls: Yes - Gastrointestinal Hx Gastrointestinal Disorders: No - Genitourinary/Gynecological Hx Genitourinary Disorders: No - Psychiatric Hx Psychophysiologic Disorder: Yes Hx Anxiety: Yes Hx Depression: Yes Hx Substance Use: No - Surgical History Hx Appendectomy: Yes Hx Hysterectomy: Yes Other/Comment: tonsilectomy, thyroidectomy - Anesthesia Hx Anesthesia: Yes Hx Anesthesia Reactions: No Hx Malignant Hyperthermia: No - Suicidal Assessment Feels Threatened In Home Enviroment: No Family/Social History - Physician Review Nursing Documentation Reviewed: Yes Family/Social History: No Known Family HX Smoking Status: Former Smoker Hx Alcohol Use: No Hx Substance Use: No Hx Substance Use Treatment: No Allergies/Home Meds Allergies/Adverse Reactions: Allergies ibuprofen [From Motrin] Allergy (Verified 11/20/18 18:42) SHORTNESS OF BREATH Penicillins Allergy (Verified 11/20/18 18:42) RASH aspirin Adverse Reaction (Verified 11/20/18 18:42) .bleeding Home Medications: Home Meds Medication Instructions Recorded Confirmed Levothyroxine [Synthroid] 150 mcg PO DAILY 05/22/16 05/24/18 Sertraline [Zoloft] 100 mg PO DAILY 05/22/16 05/24/18 Atorvastatin [Lipitor] 10 mg PO DIN 04/05/17 05/24/18 Review of Systems - Physician Review All systems were reviewed & negative as marked: Yes - Review of Systems Constitutional: absent: Fevers, Night Sweats Respiratory: SOB (occasional) Cardiovascular: Chest Pain (intermittent pressure-like chest discomfort) Physical Exam Vital Signs Reviewed: Yes Vital Signs Temp Pulse Resp BP Pulse Ox 11/20/18 18:58 86 19 123/70 97 11/20/18 18:37 98.1 F 88 18 123/71 96 Temperature: Afebrile Blood Pressure: Normal Pulse: Regular Respiratory Rate: Normal Appearance: Positive for: Well-Appearing, Non-Toxic, Comfortable Pain Distress: None Mental Status: Positive for: Alert and Oriented X 3 - Systems Exam Head: Present: Atraumatic, Normocephalic Pupils: Present: PERRL Extroacular Muscles: Present: EOMI Conjunctiva: Present: Normal Mouth: Present: Moist Mucous Membranes Neck: Present: Normal Range of Motion Respiratory/Chest: Present: Clear to Auscultation, Good Air Exchange. No: Respiratory Distress, Accessory Muscle Use Cardiovascular: Present: Regular Rate and Rhythm, Normal S1, S2. No: Murmurs Abdomen: No: Tenderness, Distention, Peritoneal Signs Back: Present: Normal Inspection Upper Extremity: Present: Normal Inspection. No: Cyanosis, Edema Lower Extremity: Present: Normal Inspection. No: Edema, CALF TENDERNESS, Rose's Sign Neurological: Present: GCS=15, CN II-XII Intact, Speech Normal Skin: Present: Warm, Dry, Normal Color. No: Rashes Psychiatric: Present: Alert, Oriented x 3, Normal Insight, Normal Concentration Medical Decision Making ED Course and Treatment: 11/20/18 19:24 Impression: 53 year old female with intermittent pressure-like chest discomfort. Plan: -- EKG -- Chest X-ray -- Labs -- Lower Extremity Ultrasound -- Reassess and disposition Progress Notes: EKG: Ordered, reviewed, and independently interpreted the EKG. Rate : 72 BPM Rhythm : NSR Interpretation : No ST-segment elevations or depressions, no T-wave inversions, normal intervals. Comparison : No previous EKG for comparison. 11/20/18 20:35 Venous doppler U/S- Negative bilaterally for DVT 11/20/18 20:40 Case discussed with medical research assistant and .Accepted to the hospitalist service. 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 I have reviewed the chart and agree that the record accurately reflects my personal performance of the history, physical exam, medical decision making, and the department course for this patient. I have also personally directed, reviewed, and agree with the discharge instructions and disposition. Disposition/Present on Arrival - Present on Arrival Any Indicators Present on Arrival: No History of DVT/PE: No History of Uncontrolled Diabetes: No Urinary Catheter: No History of Decub. Ulcer: No History Surgical Site Infection Following: None - Disposition Have Diagnosis and Disposition been Completed?: Yes Diagnosis: Chest pain Disposition: HOSPITALIZED Disposition Time: 20:40 Condition: STABLE Discharge Instructions (ExitCare): Chest Pain (ED) Referrals: Reji Vitale MD [Primary Care Provider] - Follow up with primary Forms: [employer] ([place])
[2018-11-20 20:11] LABS: MEAN CELL VOLUME 93.9 fl (80.0-105.0); MEAN CORPUSCULAR HEMOGLOBIN 30.5 pg (25.0-35.0); MEAN CORPUSCULAR HGB CONC 32.5 g/dl (31.0-37.0); MEAN PLATELET VOLUME 11.5 fl (7.0-11.0); RBC 4.26 10^6/uL (3.5-6.1); RED CELL DISTRIBUTION WIDTH 13.3 % (11.5-14.5); WHITE BLOOD COUNT 5.8 10^3/uL (4.5-11.0)
[2018-11-20 20:22] LABS: INR 1.2; PARTIAL THROMBOPLASTIN TIME 34.8 Seconds (26.9-38.3); PROTHROMBIN TIME 13.3 SECONDS (9.4-12.5)
[2018-11-20 20:23] LABS: ALB/GLOB RATIO 1.3 (1.1-1.8); ALBUMIN 4.5 g/dL (3.0-4.8); ALT/SGPT 11 U/L (7-56); AST/SGOT 18 U/L (14-36); BLOOD UREA NITROGEN 14 mg/dL (7-21); CALCIUM 9.2 mg/dL (8.4-10.5); GFR NON-AFRICAN AMERICAN > 60
[2018-11-20 20:33] LABS: B-TYPE NATRIURETIC PEPTIDE 73.2 pg/mL (0-450); TROPONIN I < 0.01 ng/mL
--- NOTE | 2018-11-20 21:28 | US ---
HISTORY: Leg pain and swelling. Evaluate for DVT PHYSICIAN(S): Cristino Cornelius MD. TECHNIQUE: Duplex sonography and color-flow Doppler with graded compression were used to evaluate the deep venous systems of both lower extremities. The exam is somewhat limited by edema FINDINGS: The visualized deep venous systems of both lower extremities are sonographically normal and compressible. Normal wave forms and augmentation are seen. There is no sonographic evidence for deep venous thrombosis in the visualized segments of both lower extremities. IMPRESSION: No sonographic evidence for deep venous thrombosis in the visualized segments of both lower extremities.
[2018-11-20] MEDS ORDERED: Enoxaparin 100 mg Syringe SC SCH (21:30)
--- NOTE | 2018-11-20 21:52 | CP.PCM.HP ---
<Maribell Casas - Last Filed: 11/21/18 04:23> History of Present Illness - History of Present Illness History of Present Illness: PGY-3 H&P for hospitalist service 53 yo female with PMH of depression, hyperlipidemia, "leaky heart valve," and thyriod ca s/p thyroidectomy, hypothyroidism, lupus presents to the emergency department complaining of intermittent pressure-like chest discomfort for the past 3 days. Patient reports that over the past 3 days she has been having chest pain located on the left side. This is associated with diaphoresis and occasional shortness of breath. She has also been experience weakness and right lower leg discomfort. About 1 week ago patient had biopsy of her left breast located on the left side near he current site of pain. She also report seeing an orthopedic about pain in her right knee, she was told that she had torn ligaments and received a steroid injects 3 weeks ago. However she was unable to follow up due to cost. She also reports pain with swallowing and states that she feel her neck is getting bigger. Patient denies any trauma, fever, chills, or any other complaints at this time. 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 12 point ROS is negative except as stated PMH: thyroid ca s/p thyroidectomy ( no chemo or radiation), h/o heavy menstrual bleeding s/p hysterectomy, depression, hyperlipidemia, "leaky heart valve," lupus PSH: appendectomy, thyroidectomy, hysterectomy. Family history: Mother MIx4 Social history: denies smoking, alcohol and illicit drug use. Lives with family. Allergy: asa, and penicillin Present on Admission - Present on Admission Any Indicators Present on Admission: No Review of Systems - Review of Systems All systems: reviewed and no additional remarkable complaints except Past Patient History - Infectious Disease Hx of Infectious Diseases: C.diff - Tetanus Immunizations Tetanus Immunization: Unknown - Past Medical History & Family History Past Medical History?: Yes - Past Social History Smoking Status: Former Smoker - CARDIAC Hx Cardiac Disorders: Yes (hypotension) - PULMONARY Hx Respiratory Disorders: No - NEUROLOGICAL Hx Neurological Disorder: Yes Hx Dizziness: Yes - HEENT Hx HEENT Problems: No - RENAL Hx Chronic Kidney Disease: No - ENDOCRINE/METABOLIC Hx Endocrine Disorders: Yes Other/Comment: thyroid CA with thyroidectomy - HEMATOLOGICAL/ONCOLOGICAL Hx Blood Disorders: Yes Hx Cancer: Yes (thyroid cancer) - INTEGUMENTARY Hx Dermatological Problems: No - MUSCULOSKELETAL/RHEUMATOLOGICAL Hx Musculoskeletal Disorders: Yes Hx Falls: Yes - GASTROINTESTINAL Hx Gastrointestinal Disorders: No - GENITOURINARY/GYNECOLOGICAL Hx Genitourinary Disorders: No - PSYCHIATRIC Hx Psychophysiologic Disorder: Yes Hx Anxiety: Yes Hx Depression: Yes Hx Substance Use: No - SURGICAL HISTORY Hx Appendectomy: Yes Hx Hysterectomy: Yes Other/Comment: tonsilectomy, thyroidectomy - ANESTHESIA Hx Anesthesia: Yes Hx Anesthesia Reactions: No Hx Malignant Hyperthermia: No Meds Allergies/Adverse Reactions: Allergies Allergy/AdvReac Type Severity Reaction Status Date / Time ibuprofen [From Motrin] Allergy SHORTNESS Verified 11/20/18 18:42 OF BREATH Penicillins Allergy RASH Verified 11/20/18 18:42 aspirin AdvReac .bleeding Verified 11/20/18 18:42 Physical Exam - Constitutional Appears: No Acute Distress - Head Exam Head Exam: ATRAUMATIC, NORMOCEPHALIC - Eye Exam Eye Exam: EOMI, Normal appearance - ENT Exam ENT Exam: Mucous Membranes Moist - Neck Exam Neck exam: Positive for: Full Rom, Normal Inspection, Tenderness. Negative for: Lymphadenopathy, Thyromegaly - Respiratory Exam Respiratory Exam: Clear to Auscultation Bilateral, NORMAL BREATHING PATTERN. absent: Decreased Breath Sounds, Rales, Rhonchi, Wheezes, Respiratory Distress - Cardiovascular Exam Cardiovascular Exam: REGULAR RHYTHM, +S1, +S2. absent: Bradycardia, Tachycardia, Diastolic murmur, Systolic Murmur - GI/Abdominal Exam GI & Abdominal Exam: Normal Bowel Sounds, Soft. absent: Diminished Bowel Sounds, Distended, Firm, Guarding, Tenderness - Extremities Exam Extremities exam: Positive for: full ROM. Negative for: calf tenderness, tenderness Additional comments: edema R>L - Neurological Exam Neurological exam: Alert, CN II-XII Intact, Oriented x3 - Psychiatric Exam Psychiatric exam: Normal Affect, Normal Mood - Skin Skin Exam: Dry, Intact, Normal Color, Warm Additional comments: Left breast exam showed no erythema, swelling or drainage from site of biopsy, no lymphadenopathy Results - Vital Signs Recent Vital Signs: Last Vital Signs Temp 97.8 F 11/20/18 21:12 Pulse 68 11/20/18 21:12 Resp 18 11/20/18 21:12 BP 136/73 11/20/18 21:12 Pulse Ox 97 11/20/18 21:12 - Labs Result Diagrams: 11/20/18 19:50 11/20/18 19:50 Labs: Laboratory Results - last 24 hr 11/20/18 11/20/18 11/20/18 19:50 19:50 19:50 WBC 5.8 RBC 4.26 Hgb 13.0 Hct 40.0 MCV 93.9 MCH 30.5 MCHC 32.5 RDW 13.3 Plt Count 233 MPV 11.5 H PT 13.3 H INR 1.20 APTT 34.8 Sodium 140 Potassium 4.2 Chloride 106 Carbon Dioxide 26 Anion Gap 12 BUN 14 Creatinine 0.5 L Est GFR ( Amer) > 60 Est GFR (Non-Af Amer) > 60 Random Glucose 92 Calcium 9.2 Total Bilirubin 1.0 AST 18 ALT 11 Alkaline Phosphatase 54 Lactate Dehydrogenase 399 Total Creatine Kinase 52 Troponin I < 0.01 NT-Pro-B Natriuret Pep 73.2 Total Protein 7.8 Albumin 4.5 Globulin 3.3 Albumin/Globulin Ratio 1.3 Assessment & Plan - Assessment and Plan (Free Text) Assessment: 53 yo female with PMH of depression, hyperlipidemia, "leaky heart valve," and thyriod ca s/p thyroidectomy, hypothyroidism, presents to the emergency department complaining of intermittent pressure-like chest discomfort associated with diaphoresis and sob. Plan: chest pain associated with diaphoresis and sob - r/o acs - will get CTA to rule out PE - will start lovenox until CTA - trend trop - TSH and lipid panel - cardiology consult - patient is allergic to asa will start plavix - echo - cont lipitor dysphagia with history of thyroid ca - will get US of thyriod - will order TSH - continue home medication synthriod knee pain and swallowing - R>L, most likely due to known history of torn ligaments - bilateral duplex of LE is negative - will place lidoderm patch for pain depression - continue home zoloft DVT ppx- lovenox GI ppx- pepcid case discussed with Attending <Greer Berry - Last Filed: 11/21/18 06:45> Results - Vital Signs Recent Vital Signs: Last Vital Signs Temp 98.1 F 11/20/18 23:00 Pulse 70 11/21/18 05:02 Resp 19 11/20/18 23:00 BP 105/64 11/20/18 23:00 Pulse Ox 95 11/20/18 23:00 - Labs Result Diagrams: 11/20/18 19:50 11/20/18 19:50 Labs: Laboratory Results - last 24 hr 11/20/18 11/20/18 11/20/18 19:50 19:50 19:50 WBC 5.8 RBC 4.26 Hgb 13.0 Hct 40.0 MCV 93.9 MCH 30.5 MCHC 32.5 RDW 13.3 Plt Count 233 MPV 11.5 H PT 13.3 H INR 1.20 APTT 34.8 Sodium 140 Potassium 4.2 Chloride 106 Carbon Dioxide 26 Anion Gap 12 BUN 14 Creatinine 0.5 L Est GFR ( Amer) > 60 Est GFR (Non-Af Amer) > 60 Random Glucose 92 Calcium 9.2 Total Bilirubin 1.0 AST 18 ALT 11 Alkaline Phosphatase 54 Lactate Dehydrogenase 399 Total Creatine Kinase 52 Troponin I < 0.01 NT-Pro-B Natriuret Pep 73.2 Total Protein 7.8 Albumin 4.5 Globulin 3.3 Albumin/Globulin Ratio 1.3 11/21/18 01:00 WBC RBC Hgb Hct MCV MCH MCHC RDW Plt Count MPV PT INR APTT Sodium Potassium Chloride Carbon Dioxide Anion Gap BUN Creatinine Est GFR ( Amer) Est GFR (Non-Af Amer) Random Glucose Calcium Total Bilirubin AST ALT Alkaline Phosphatase Lactate Dehydrogenase Total Creatine Kinase Troponin I < 0.01 NT-Pro-B Natriuret Pep Total Protein Albumin Globulin Albumin/Globulin Ratio Attending/Attestation - Attestation I have personally seen and examined this patient.: Yes I have fully participated in the care of the patient.: Yes I have reviewed all pertinent clinical information: Yes Notes (Text): 11/21/18 06:44 Seen and examined. C/O multiple symptoms weakness, ACOSTA,sweating, right knree swelling and pain and CP. Discussed with resident. A&P as above.
[2018-11-20] MEDS ORDERED: Iohexol 350 MG/100 ML VIAL ONE (23:37)
[2018-11-21 05:04] VITALS: PULSE 70
[2018-11-21] MEDS ORDERED: Levothyroxine 150 MCG TAB PO SCH (07:30)
[2018-11-21 08:04] LABS: BASO # 0.01 K/mm3 (0.0-2.0); BASO % 0.1 % (0.0-3.0); EOS # 0.2 (0.0-0.7); EOS % 2.7 % (1.5-5.0); HEMOGLOBIN 13.5 g/dL (12.0-16.0); LYMPH # 3.4 (1.2-3.4); LYMPH % 48.2 % (22.0-35.0); MEAN CELL VOLUME 94.4 fl (80.0-105.0); MEAN CORPUSCULAR HGB CONC 31.8 g/dl (31.0-37.0); MEAN PLATELET VOLUME 11.7 fl (7.0-11.0); MONO # 0.3 (0.1-0.6); MONO % 4.2 % (1.0-6.0); RBC 4.5 10^6/uL (3.5-6.1); RED CELL DISTRIBUTION WIDTH 13.3 % (11.5-14.5); WHITE BLOOD COUNT 7.1 10^3/uL (4.5-11.0)
[2018-11-21 08:24] LABS: TROPONIN I < 0.01 ng/mL
[2018-11-21 08:25] LABS: ALB/GLOB RATIO 1.4 (1.1-1.8); ALBUMIN 4.8 g/dL (3.0-4.8); ALT/SGPT 8 U/L (7-56); AST/SGOT 20 U/L (14-36); BLOOD UREA NITROGEN 16 mg/dL (7-21); CALCIUM 9.7 mg/dL (8.4-10.5); GFR NON-AFRICAN AMERICAN > 60; HDL CHOLESTEROL 57 mg/dL (29-60)
[2018-11-21 08:26] LABS: LDL CHOLESTEROL 157 mg/dL (0-129)
[2018-11-21 08:30] LABS: FREE T4 1.29 ng/dL (0.78-2.19)
[2018-11-21 08:43] VITALS: BP 102/62; RESP 18; TEMP 98.5; O2SAT 96
--- NOTE | 2018-11-21 09:05 | RAD ---
Date of service: 11/20/2018 HISTORY: chest pain COMPARISON: Chest radiographs 06/29/2018. FINDINGS: LUNGS: No active pulmonary disease. PLEURA: No significant pleural effusion identified, no pneumothorax apparent. CARDIOVASCULAR: No aortic atherosclerotic calcification present. Normal cardiac size. No pulmonary vascular congestion. OSSEOUS STRUCTURES: No significant abnormalities. VISUALIZED UPPER ABDOMEN: Normal. OTHER FINDINGS: None. IMPRESSION: No interval acute cardiopulmonary disease appreciated.
[2018-11-21] MEDS ORDERED: Lidocaine 5% Patch TD SCH (10:00)
--- NOTE | 2018-11-21 11:09 | CP.PCM.CON ---
History of Present Illness - History of Present Illness History of Present Illness: Awake, alert, no distress Reason for consultation: Cardiac evaluation of left sided chest pain, non radiating Brief history of present illness: A 53 year old morbidly obese female who came in to the ER due to intermittent left chest pain/discomfort associated with diaphoresis. Denies shortness of breath. she had left breast biopsy last Thursday, site tender to touch. History of depression, hyperlipidemia, "leaky heart valve," and thyroid cancer post thyroidectomy ( no chemo or radiation) hypothyroidism, lupus,appendectomy, hysterectomy. Seen and examined by me and Dr. Giordano Review of Systems - Review of Systems All systems: reviewed and no additional remarkable complaints except Review of Systems: as per HPI Past Patient History - Infectious Disease Hx of Infectious Diseases: C.diff - Tetanus Immunizations Tetanus Immunization: Unknown - Past Medical History & Family History Past Medical History?: Yes - Past Social History Smoking Status: Former Smoker - CARDIAC Hx Cardiac Disorders: Yes (hypotension) - PULMONARY Hx Respiratory Disorders: No - NEUROLOGICAL Hx Neurological Disorder: Yes Hx Dizziness: Yes - HEENT Hx HEENT Problems: No - RENAL Hx Chronic Kidney Disease: No - ENDOCRINE/METABOLIC Hx Endocrine Disorders: Yes Other/Comment: thyroid CA with thyroidectomy - HEMATOLOGICAL/ONCOLOGICAL Hx Blood Disorders: Yes Hx Cancer: Yes (thyroid cancer) - INTEGUMENTARY Hx Dermatological Problems: No - MUSCULOSKELETAL/RHEUMATOLOGICAL Hx Musculoskeletal Disorders: Yes Hx Falls: Yes - GASTROINTESTINAL Hx Gastrointestinal Disorders: No - GENITOURINARY/GYNECOLOGICAL Hx Genitourinary Disorders: No - PSYCHIATRIC Hx Psychophysiologic Disorder: Yes Hx Anxiety: Yes Hx Depression: Yes Hx Substance Use: No - SURGICAL HISTORY Hx Appendectomy: Yes Hx Hysterectomy: Yes Other/Comment: tonsilectomy, thyroidectomy - ANESTHESIA Hx Anesthesia: Yes Hx Anesthesia Reactions: No Hx Malignant Hyperthermia: No Meds Allergies/Adverse Reactions: Allergies Allergy/AdvReac Type Severity Reaction Status Date / Time ibuprofen [From Motrin] Allergy SHORTNESS Verified 11/20/18 18:42 OF BREATH Penicillins Allergy RASH Verified 11/20/18 18:42 aspirin AdvReac .bleeding Verified 11/20/18 18:42 - Medications Medications: Current Medications Atorvastatin Calcium (Lipitor) 10 mg PO DIN JUANITA Clopidogrel Bisulfate (Plavix) 75 mg PO DAILY [facility] Last Admin: 11/21/18 09:44 Dose: 75 mg Famotidine (Pepcid) 20 mg PO 1000,2200 [facility] Last Admin: 11/21/18 09:44 Dose: 20 mg Levothyroxine Sodium (Synthroid) 150 mcg PO ACB [facility] Last Admin: 11/21/18 09:43 Dose: 150 mcg Lidocaine (Lidoderm) 1 ea TD DAILY [facility] Last Admin: 11/21/18 09:44 Dose: 1 ea Sertraline HCl (Zoloft) 50 mg PO DAILY [facility] Last Admin: 11/21/18 09:44 Dose: 50 mg Physical Exam - Constitutional Appears: Non-toxic, No Acute Distress - Head Exam Head Exam: NORMAL INSPECTION, NORMOCEPHALIC - Eye Exam Eye Exam: Normal appearance Pupil Exam: NORMAL ACCOMODATION - ENT Exam ENT Exam: Mucous Membranes Moist, Normal Exam - Respiratory Exam Respiratory Exam: Decreased Breath Sounds, Clear to Auscultation Bilateral, NORMAL BREATHING PATTERN - Cardiovascular Exam Cardiovascular Exam: REGULAR RHYTHM, +S1, +S2 Additional comments: Telemetry NSR 70's left side of breast tender to touch/biopsy site - GI/Abdominal Exam GI & Abdominal Exam: Normal Bowel Sounds, Soft - Neurological Exam Neurological exam: Alert, Oriented x3 - Psychiatric Exam Psychiatric exam: Normal Affect, Normal Mood - Skin Skin Exam: Dry, Normal Color, Warm Results - Vital Signs Recent Vital Signs: Last Vital Signs Temp 98.5 F 11/21/18 08:42 Pulse 70 11/21/18 08:42 Resp 18 11/21/18 08:42 BP 102/62 11/21/18 08:42 Pulse Ox 96 11/21/18 08:42 - Labs Result Diagrams: 11/21/18 07:00 11/21/18 07:00 Labs: Laboratory Results - last 24 hr 11/20/18 11/20/18 11/20/18 19:50 19:50 19:50 WBC 5.8 RBC 4.26 Hgb 13.0 Hct 40.0 MCV 93.9 MCH 30.5 MCHC 32.5 RDW 13.3 Plt Count 233 MPV 11.5 H Neut % (Auto) Lymph % (Auto) [place] % (Auto) Eos % (Auto) Baso % (Auto) Lymph # (Auto) [place] # (Auto) Eos # (Auto) Baso # (Auto) Absolute Neuts (auto) PT 13.3 H INR 1.20 APTT 34.8 Sodium 140 Potassium 4.2 Chloride 106 Carbon Dioxide 26 Anion Gap 12 BUN 14 Creatinine 0.5 L Est GFR ( Amer) > 60 Est GFR (Non-Af Amer) > 60 Random Glucose 92 Calcium 9.2 Magnesium Total Bilirubin 1.0 AST 18 ALT 11 Alkaline Phosphatase 54 Lactate Dehydrogenase 399 Total Creatine Kinase 52 Troponin I < 0.01 NT-Pro-B Natriuret Pep 73.2 Total Protein 7.8 Albumin 4.5 Globulin 3.3 Albumin/Globulin Ratio 1.3 Triglycerides Cholesterol LDL Cholesterol Direct HDL Cholesterol Free T4 TSH 3rd Generation 11/21/18 11/21/18 11/21/18 01:00 07:00 07:00 WBC 7.1 D RBC 4.50 Hgb 13.5 Hct 42.5 MCV 94.4 MCH 30.0 MCHC 31.8 RDW 13.3 Plt Count 271 MPV 11.7 H Neut % (Auto) 44.8 L Lymph % (Auto) 48.2 H [place] % (Auto) 4.2 Eos % (Auto) 2.7 Baso % (Auto) 0.1 Lymph # (Auto) 3.4 [place] # (Auto) 0.3 Eos # (Auto) 0.2 Baso # (Auto) 0.01 Absolute Neuts (auto) 3.16 PT INR APTT Sodium 141 Potassium 4.3 Chloride 105 Carbon Dioxide 26 Anion Gap 14 BUN 16 Creatinine 0.7 Est GFR ( Amer) > 60 Est GFR (Non-Af Amer) > 60 Random Glucose 101 Calcium 9.7 Magnesium 2.3 H Total Bilirubin 0.8 AST 20 ALT 8 Alkaline Phosphatase 55 Lactate Dehydrogenase Total Creatine Kinase Troponin I < 0.01 < 0.01 NT-Pro-B Natriuret Pep Total Protein 8.1 Albumin 4.8 Globulin 3.4 Albumin/Globulin Ratio 1.4 Triglycerides 148 Cholesterol 288 H LDL Cholesterol Direct 157 H HDL Cholesterol 57 Free T4 TSH 3rd Generation 11/21/18 07:00 WBC RBC Hgb Hct MCV MCH MCHC RDW Plt Count MPV Neut % (Auto) Lymph % (Auto) [place] % (Auto) Eos % (Auto) Baso % (Auto) Lymph # (Auto) [place] # (Auto) Eos # (Auto) Baso # (Auto) Absolute Neuts (auto) PT INR APTT Sodium Potassium Chloride Carbon Dioxide Anion Gap BUN Creatinine Est GFR ( Amer) Est GFR (Non-Af Amer) Random Glucose Calcium Magnesium Total Bilirubin AST ALT Alkaline Phosphatase Lactate Dehydrogenase Total Creatine Kinase Troponin I NT-Pro-B Natriuret Pep Total Protein Albumin Globulin Albumin/Globulin Ratio Triglycerides Cholesterol LDL Cholesterol Direct HDL Cholesterol Free T4 1.29 TSH 3rd Generation 0.63 Assessment & Plan - Assessment and Plan (Free Text) Assessment: A 53 year old morbidly obese female who came in to the ER due to intermittent left chest pain/discomfort associated with diaphoresis. Denies shortness of breath. she had left breast biopsy last Thursday, site tender to touch. History of depression, hyperlipidemia, and thyroid cancer post thyroidectomy ( no chemo or radiation) hypothyroidism, lupus,appendectomy, and hysterectomy. Chest pain/discomfort is from left side where left breast biopsy was done. Troponin normal x 2 (0.01). Tender to touch. Chest pain is musculoskeletal pain in nature. Ruled out acute myocardial ischemia. Will order Echo to evaluate LV function.Had echo last 05/23/16 with essentially normal result,LVEF 50 % read by Dr. Campbell. Stress test done 04/18/14 showed normal, no ischemia. Ibuprofen for musculoskeletal pain. Repeat echo on Thursday. however patient wanted to go home and echo can be done as outpatient. Plan: No distress Musculoskeletal left chest pain Allergic to Ibuprofen, will give Tylenol for pain Denies shortness of breath Will repeat echo to evaluate LV function TSH,Lipid panel and HgbA1C Lipitor 10 mg daily, Plavix 75 mg daily, Synthroid 150 mcg daily Continue current treatment Continue current medications further recommendations during hospital course Will follow up Plan and treatment discussed with Dr. Giordano Thank you Dr. Steen for the opportunity of taking care of Doris Gibson - Date & Time Date: 11/21/18 Time: 07:15
--- NOTE | 2018-11-21 11:30 | CP.PCM.DIS ---
<ShantaJose D - Last Filed: 11/21/18 12:24> Provider - Provider Date of Admission: 11/20/18 20:42 Attending physician: Rush Steen MD Primary care physician: Rjei Vitale MD Consults: 11/20/18 21:26 Cardiology Consult Routine Comment: Consulting Provider: Román Giordano Consulting Physician: Román Giordano Reason for Consult: chest pain r.o acs Time Spent in preparation of Discharge (in minutes): 45 Diagnosis - Discharge Diagnosis (1) Chest pain Status: Resolved (2) Depression Status: Chronic (3) Hyperlipidemia Status: Chronic (4) History of thyroidectomy Status: Resolved Hospital Course - Lab Results Lab Results: Most Recent Lab Values WBC 7.1 10^3/uL (4.5-11.0) D 11/21/18 07:00 RBC 4.50 10^6/uL (3.5-6.1) 11/21/18 07:00 Hgb 13.5 g/dL (12.0-16.0) 11/21/18 07:00 Hct 42.5 % (36.0-48.0) 11/21/18 07:00 MCV 94.4 fl (80.0-105.0) 11/21/18 07:00 MCH 30.0 pg (25.0-35.0) 11/21/18 07:00 MCHC 31.8 g/dl (31.0-37.0) 11/21/18 07:00 RDW 13.3 % (11.5-14.5) 11/21/18 07:00 Plt Count 271 10^3/uL (120.0-450.0) 11/21/18 07:00 MPV 11.7 fl (7.0-11.0) H 11/21/18 07:00 Neut % (Auto) 44.8 % (50.0-68.0) L 11/21/18 07:00 Lymph % (Auto) 48.2 % (22.0-35.0) H 11/21/18 07:00 [place] % (Auto) 4.2 % (1.0-6.0) 11/21/18 07:00 Eos % (Auto) 2.7 % (1.5-5.0) 11/21/18 07:00 Baso % (Auto) 0.1 % (0.0-3.0) 11/21/18 07:00 Lymph # (Auto) 3.4 (1.2-3.4) 11/21/18 07:00 [place] # (Auto) 0.3 (0.1-0.6) 11/21/18 07:00 Eos # (Auto) 0.2 (0.0-0.7) 11/21/18 07:00 Baso # (Auto) 0.01 K/mm3 (0.0-2.0) 11/21/18 07:00 Absolute Neuts (auto) 3.16 (1.4-6.5) 11/21/18 07:00 PT 13.3 SECONDS (9.4-12.5) H 11/20/18 19:50 INR 1.20 11/20/18 19:50 APTT 34.8 Seconds (26.9-38.3) 11/20/18 19:50 Sodium 141 mmol/L (132-148) 11/21/18 07:00 Potassium 4.3 mmol/L (3.6-5.0) 11/21/18 07:00 Chloride 105 mmol/L (98-107) 11/21/18 07:00 Carbon Dioxide 26 mmol/L (21-33) 11/21/18 07:00 Anion Gap 14 (10-20) 11/21/18 07:00 BUN 16 mg/dL (7-21) 11/21/18 07:00 Creatinine 0.7 mg/dl (0.7-1.2) 11/21/18 07:00 Est GFR ( Amer) > 60 11/21/18 07:00 Est GFR (Non-Af Amer) > 60 11/21/18 07:00 Random Glucose 101 mg/dL (70-110) 11/21/18 07:00 Calcium 9.7 mg/dL (8.4-10.5) 11/21/18 07:00 Magnesium 2.3 mg/dL (1.7-2.2) H 11/21/18 07:00 Total Bilirubin 0.8 mg/dL (0.2-1.3) 11/21/18 07:00 AST 20 U/L (14-36) 11/21/18 07:00 ALT 8 U/L (7-56) 11/21/18 07:00 Alkaline Phosphatase 55 U/L (38-126) 11/21/18 07:00 Lactate Dehydrogenase 399 U/L (333-699) 11/20/18 19:50 Total Creatine Kinase 52 U/L (35-230) 11/20/18 19:50 Troponin I < 0.01 ng/mL 11/21/18 07:00 NT-Pro-B Natriuret Pep 73.2 pg/mL (0-450) 11/20/18 19:50 Total Protein 8.1 g/dL (5.8-8.3) 11/21/18 07:00 Albumin 4.8 g/dL (3.0-4.8) 11/21/18 07:00 Globulin 3.4 gm/dL 11/21/18 07:00 Albumin/Globulin Ratio 1.4 (1.1-1.8) 11/21/18 07:00 Triglycerides 148 mg/dL (35-160) 11/21/18 07:00 Cholesterol 288 mg/dL (130-200) H 11/21/18 07:00 LDL Cholesterol Direct 157 mg/dL (0-129) H 11/21/18 07:00 HDL Cholesterol 57 mg/dL (29-60) 11/21/18 07:00 Free T4 1.29 ng/dL (0.78-2.19) 11/21/18 07:00 TSH 3rd Generation 0.63 mIU/mL (0.46-4.68) 11/21/18 07:00 - Hospital Course Hospital Course: Patient is a 53 year old female with PMH of thyroid ca s/p thyroidectomy ( no chemo or radiation), h/o heavy menstrual bleeding s/p hysterectomy, depression, hyperlipidemia, "leaky heart valve," lupus, presenting with intermittent pressure-like chest discomfort for the past 3 days. Patient reports that over the past 3 days she has been having chest pain located on the left side. This is associated with diaphoresis and occasional shortness of breath. About 1 week ago patient had biopsy of her left breast located on the left side near her current site of pain. In the course of his hospital stay, EKG showed NSR without ST changes. Lower extremity ultrasound showed no DVTs. Troponins were negative. Cardiology, Dr. Giordano examined the patient and instructed her to follow up with her podopediatrician and cleared her for discharge. Patient states she has an appointment to see her podopediatrician and pmd on 11/22. Upon discharge, patient was instructed to go to her appointments and follow up. She was instructed to return to the emergency room for worsening or newly concerning symptoms. Patient is medically stable for discharge. Discharge Exam - Additional Findings Additional findings: - Constitutional Appears: No Acute Distress - Head Exam Head Exam: ATRAUMATIC, NORMOCEPHALIC - Eye Exam Eye Exam: EOMI, Normal appearance - ENT Exam ENT Exam: Mucous Membranes Moist - Neck Exam Neck exam: Positive for: Full Rom, Normal Inspection. Negative for: Lymphadenopathy, Thyromegaly - Respiratory Exam Respiratory Exam: Clear to Auscultation Bilateral, NORMAL BREATHING PATTERN. absent: Decreased Breath Sounds, Rales, Rhonchi, Wheezes, Respiratory Distress - Cardiovascular Exam Cardiovascular Exam: REGULAR RHYTHM, +S1, +S2. absent: Bradycardia, Tachycardia, Diastolic murmur, Systolic Murmur Reproducible chest tenderness of left side - GI/Abdominal Exam GI & Abdominal Exam: Normal Bowel Sounds, Soft. absent: Diminished Bowel Sounds, Distended, Firm, Guarding, Tenderness - Extremities Exam Extremities exam: Positive for: full ROM. Negative for: calf tenderness, tenderness - Neurological Exam Neurological exam: Alert, CN II-XII Intact, Oriented x3 - Psychiatric Exam Psychiatric exam: Normal Affect, Normal Mood - Skin Skin Exam: Dry, Intact, Normal Color, Warm Discharge Plan - Follow Up Plan Condition: STABLE Disposition: HOME/ ROUTINE Instructions: Chest Pain (DC), Chest Pain (GEN) Additional Instructions: You may resume all home medications. Follow up with Primary Care Provider within 5-7 days. If symptoms persist or worsen, please visit your nearest Emergency Department. Referrals: Reji Vitale MD [Primary Care Provider] - <Román Patricio - Last Filed: 11/21/18 13:11> Provider - Provider Date of Admission: 11/20/18 20:42 Attending physician: Rush Steen MD Primary care physician: Reji Vitale MD Consults: 11/20/18 21:26 Cardiology Consult Routine Comment: Consulting Provider: Román Giordano Consulting Physician: Román Giordano Reason for Consult: chest pain r.o acs Hospital Course - Lab Results Lab Results: Most Recent Lab Values WBC 7.1 10^3/uL (4.5-11.0) D 11/21/18 07:00 RBC 4.50 10^6/uL (3.5-6.1) 11/21/18 07:00 Hgb 13.5 g/dL (12.0-16.0) 11/21/18 07:00 Hct 42.5 % (36.0-48.0) 11/21/18 07:00 MCV 94.4 fl (80.0-105.0) 11/21/18 07:00 MCH 30.0 pg (25.0-35.0) 11/21/18 07:00 MCHC 31.8 g/dl (31.0-37.0) 11/21/18 07:00 RDW 13.3 % (11.5-14.5) 11/21/18 07:00 Plt Count 271 10^3/uL (120.0-450.0) 11/21/18 07:00 MPV 11.7 fl (7.0-11.0) H 11/21/18 07:00 Neut % (Auto) 44.8 % (50.0-68.0) L 11/21/18 07:00 Lymph % (Auto) 48.2 % (22.0-35.0) H 11/21/18 07:00 [place] % (Auto) 4.2 % (1.0-6.0) 11/21/18 07:00 Eos % (Auto) 2.7 % (1.5-5.0) 11/21/18 07:00 Baso % (Auto) 0.1 % (0.0-3.0) 11/21/18 07:00 Lymph # (Auto) 3.4 (1.2-3.4) 11/21/18 07:00 [place] # (Auto) 0.3 (0.1-0.6) 11/21/18 07:00 Eos # (Auto) 0.2 (0.0-0.7) 11/21/18 07:00 Baso # (Auto) 0.01 K/mm3 (0.0-2.0) 11/21/18 07:00 Absolute Neuts (auto) 3.16 (1.4-6.5) 11/21/18 07:00 PT 13.3 SECONDS (9.4-12.5) H 11/20/18 19:50 INR 1.20 11/20/18 19:50 APTT 34.8 Seconds (26.9-38.3) 11/20/18 19:50 Sodium 141 mmol/L (132-148) 11/21/18 07:00 Potassium 4.3 mmol/L (3.6-5.0) 11/21/18 07:00 Chloride 105 mmol/L (98-107) 11/21/18 07:00 Carbon Dioxide 26 mmol/L (21-33) 11/21/18 07:00 Anion Gap 14 (10-20) 11/21/18 07:00 BUN 16 mg/dL (7-21) 11/21/18 07:00 Creatinine 0.7 mg/dl (0.7-1.2) 11/21/18 07:00 Est GFR ( Amer) > 60 11/21/18 07:00 Est GFR (Non-Af Amer) > 60 11/21/18 07:00 Random Glucose 101 mg/dL (70-110) 11/21/18 07:00 Hemoglobin A1c 5.2 % (4.2-6.5) 11/21/18 07:00 Calcium 9.7 mg/dL (8.4-10.5) 11/21/18 07:00 Magnesium 2.3 mg/dL (1.7-2.2) H 11/21/18 07:00 Total Bilirubin 0.8 mg/dL (0.2-1.3) 11/21/18 07:00 AST 20 U/L (14-36) 11/21/18 07:00 ALT 8 U/L (7-56) 11/21/18 07:00 Alkaline Phosphatase 55 U/L (38-126) 11/21/18 07:00 Lactate Dehydrogenase 399 U/L (333-699) 11/20/18 19:50 Total Creatine Kinase 52 U/L (35-230) 11/20/18 19:50 Troponin I < 0.01 ng/mL 11/21/18 07:00 NT-Pro-B Natriuret Pep 73.2 pg/mL (0-450) 11/20/18 19:50 Total Protein 8.1 g/dL (5.8-8.3) 11/21/18 07:00 Albumin 4.8 g/dL (3.0-4.8) 11/21/18 07:00 Globulin 3.4 gm/dL 11/21/18 07:00 Albumin/Globulin Ratio 1.4 (1.1-1.8) 11/21/18 07:00 Triglycerides 148 mg/dL (35-160) 11/21/18 07:00 Cholesterol 288 mg/dL (130-200) H 11/21/18 07:00 LDL Cholesterol Direct 157 mg/dL (0-129) H 11/21/18 07:00 HDL Cholesterol 57 mg/dL (29-60) 11/21/18 07:00 Free T4 1.29 ng/dL (0.78-2.19) 11/21/18 07:00 TSH 3rd Generation 0.63 mIU/mL (0.46-4.68) 11/21/18 07:00 Attending/Attestation - Attestation I have personally seen and examined this patient.: Yes I have fully participated in the care of the patient.: Yes I have reviewed all pertinent clinical information, including history, physical exam and plan: Yes Notes (Text): 11/21/18 13:09 Medical record note made by the resident after discussion with my direction and input after the patient was personally seen and examined by me. I have reviewed the chart and agree that the record accurately reflects by personal performance of the history, physical exam, data review, and medical decision-making, in the course for the patient. I have also personally directed the plan of care 53 year old female with PMH of thyroid ca s/p thyroidectomy ( no chemo or radiation), s/p hysterectomy, depression, hyperlipidemia,H/O recent left breast biopsy was admitted with atypical chest pain, has chest wall tenderness.EKG is negative for ischemic changes.Serial troponins are normal. Patient has been evaluated by cardiology and is cleared for discharge,She is pain free.She has scheduled appointment with her podopediatrician tomorrow. Management plan was discussed in detail with patient. Education was provided.
--- NOTE | 2018-11-21 12:19 | CT ---
Date of service: 11/20/2018 PROCEDURE: CT Chest with contrast (Pulmonary Angiogram) HISTORY: sob r/o pe COMPARISON: None available. TECHNIQUE: Axial computed tomography images were obtained of the chest in the pulmonary arterial phase of enhancement. Coronal and sagittal reformatted images were created and reviewed. Intravenous contrast dose: Omnipaque 350, 70 cc Radiation dose: Total exam DLP = 331.62 mGy-cm. This CT exam was performed using one or more of the following dose reduction techniques: Automated exposure control, adjustment of the mA and/or kV according to patient size, and/or use of iterative reconstruction technique. FINDINGS: PULMONARY ARTERIES: Unremarkable. No pulmonary embolism. AORTA: No acute findings. No thoracic aortic aneurysm. No aortic atherosclerotic calcification or mural plaque present. LUNGS: Unremarkable. No nodule, mass or pulmonary consolidation. PLEURAL SPACES: Unremarkable. No effusion or pneumothorax. HEART: Cardiac size upper limits of normal. No significant pericardial effusion. LYMPH NODES: No lymphadenopathy. BONES, CHEST WALL: Unremarkable. No fracture or destructive lesion OTHER FINDINGS: Small hiatal hernia identified. IMPRESSION: 1. No CT evidence of pulmonary embolus. 2. Borderline cardiomegaly. No pulmonary vascular congestion. 3. No consolidation, pleural or pericardial effusion or significant lymphadenopathy. Concordant preliminary report from [facility], 11/21/2018, 9:12 a.m..
--- NOTE | 2018-11-21 19:52 | CARD ---
APPROVED REPORT Date of service: 11/20/2018 EKG Measurement Heart [id number] <Conclusion> Normal sinus rhythm Normal ECG
== END 2018-11-21 11:42 | disposition home or self-care (01) ==
LOC: ED 18:37 → ERH 20:42 → 3RNO 21:55
PROVIDERS: ADMIT Internal Medicine; ATTEND Internal Medicine
DX: R07.9 Chest pain, unspecified (principal); F32.89 Other specified depressive episodes; E66.01 Morbid (severe) obesity due to excess calories; E78.5 Hyperlipidemia, unspecified; E89.0 Postprocedural hypothyroidism; Z79.890 Hormone replacement therapy; Z85.850 Personal history of malignant neoplasm of thyroid; Z87.891 Personal history of nicotine dependence; Z90.49 Acquired absence of other specified parts of digestive tract; Z90.710 Acquired absence of both cervix and uterus; Z88.6 Allergy status to analgesic agent; Z88.0 Allergy status to penicillin; S83.91XA Sprain of unspecified site of right knee, initial encounter; M32.9 Systemic lupus erythematosus, unspecified; R13.10 Dysphagia, unspecified; Z68.33 Body mass index [BMI] 33.0-33.9, adult
CPT/HCPCS: 36415; 71045; 71275; 80053; 80061; 82550; 83036; 83615; 83735; 83880; 84439; 84443; 84484; 85025; 85027; 85610; 85730; 86038; 93005; 93970; 96374; 99285; G0378; J1650; Q9967

== ENCOUNTER 2018-11-24 23:25 | Emergency (ER) | payer OTHER | END 2018-11-25 00:29 | disposition home or self-care (01) | LOC: ED 23:25 ==

== ENCOUNTER 2018-12-25 20:06 | Emergency (ER) | payer OTHER ==
[2018-12-25 20:06] VITALS: BMI 34.5
[2018-12-25 20:16] VITALS: RESP 18; TEMP 97.7
[2018-12-25] MEDS: Albuterol-Ipratrop 3 mg / 0.5 (3 ml) UD IH SCH ×3 (20:30→21:00)
[2018-12-25 20:41] LABS: BASO # 0.01 K/mm3 (0.0-2.0); BASO % 0.2 % (0.0-3.0); EOS # 0.2 (0.0-0.7); EOS % 3.3 % (1.5-5.0); HEMOGLOBIN 12.5 g/dL (12.0-16.0); LYMPH # 2.2 (1.2-3.4); LYMPH % 38.5 % (22.0-35.0); MEAN CELL VOLUME 94.1 fl (80.0-105.0); MEAN CORPUSCULAR HEMOGLOBIN 30.5 pg (25.0-35.0); MEAN CORPUSCULAR HGB CONC 32.4 g/dl (31.0-37.0); MEAN PLATELET VOLUME 11.4 fl (7.0-11.0); MONO # 0.3 (0.1-0.6); MONO % 4.4 % (1.0-6.0); RBC 4.1 10^6/uL (3.5-6.1); RED CELL DISTRIBUTION WIDTH 12.7 % (11.5-14.5); WHITE BLOOD COUNT 5.7 10^3/uL (4.5-11.0)
[2018-12-25 21:01] LABS: ALB/GLOB RATIO 1.3 (1.1-1.8); ALBUMIN 4.2 g/dL (3.0-4.8); ALT/SGPT < 6 U/L (7-56); AST/SGOT 39 U/L (14-36); BLOOD UREA NITROGEN 16 mg/dL (7-21); GFR NON-AFRICAN AMERICAN > 60
[2018-12-25 21:36] LABS: B-TYPE NATRIURETIC PEPTIDE 71.6 pg/mL (0-450); TROPONIN I < 0.01 ng/mL
--- NOTE | 2018-12-25 21:51 | ED PDOC ---
Arrival/HPI - General Chief Complaint: Shortness Of Breath Time Seen by Provider: 12/25/18 20:06 - History of Present Illness Narrative History of Present Illness (Text): 12/25/18 20:10 Doris Gibson is a 53 year old female, whose past medical history includes depression, anxiety, hyperlipidemia, thyroid cancer s/p thyroidectomy, hypothyroidism, and lupus, who presents to the emergency department complaining of shortness of breath for the past 6 days. Patient denies any chest pain, abdominal pain, nausea, vomiting, diarrhea, fever, chills, or any other complaints. Symptom Onset: Gradual Symptom Course: Unchanged Activities at Onset: Light Context: Home Past Medical History - Provider Review Nursing Documentation Reviewed: Yes - Infectious Disease Hx of Infectious Diseases: None - Tetanus Immunization Tetanus Immunization: Unknown - Cardiac Hx Cardiac Disorders: Yes (hypotension) - Pulmonary Hx Respiratory Disorders: No - Neurological Hx Neurological Disorder: Yes Hx Dizziness: Yes - HEENT Hx HEENT Disorder: No - Renal Hx Renal Disorder: No - Endocrine/Metabolic Hx Endocrine Disorders: Yes Other/Comment: thyroid CA with thyroidectomy - Hematological/Oncological Hx Blood Disorders: Yes Hx Cancer: Yes (thyroid cancer) - Integumentary Hx Dermatological Disorder: No - Musculoskeletal/Rheumatological Hx Musculoskeletal Disorders: Yes Hx Falls: Yes - Gastrointestinal Hx Gastrointestinal Disorders: No - Genitourinary/Gynecological Hx Genitourinary Disorders: No - Psychiatric Hx Psychophysiologic Disorder: Yes Hx Anxiety: Yes Hx Depression: Yes Hx Substance Use: No - Surgical History Hx Appendectomy: Yes Hx Hysterectomy: Yes Other/Comment: tonsilectomy, thyroidectomy - Anesthesia Hx Anesthesia: Yes Hx Anesthesia Reactions: No Hx Malignant Hyperthermia: No - Suicidal Assessment Feels Threatened In Home Enviroment: No Family/Social History - Physician Review Nursing Documentation Reviewed: Yes Family/Social History: Unknown Family HX Smoking Status: Former Smoker Hx Alcohol Use: No Hx Substance Use: No Hx Substance Use Treatment: No Allergies/Home Meds Allergies/Adverse Reactions: Allergies ibuprofen [From Motrin] Allergy (Verified 12/25/18 20:07) SHORTNESS OF BREATH Penicillins Allergy (Verified 12/25/18 20:07) RASH aspirin Adverse Reaction (Verified 12/25/18 20:07) .bleeding Home Medications: Home Meds Medication Instructions Recorded Confirmed Levothyroxine [Synthroid] 150 mcg PO DAILY 05/22/16 11/20/18 Sertraline [Zoloft] 100 mg PO DAILY 05/22/16 11/20/18 Atorvastatin [Lipitor] 10 mg PO DIN 04/05/17 11/20/18 Lamotrigine [Subvenite] 25 mg PO 11/20/18 Review of Systems - Physician Review All systems were reviewed & negative as marked: Yes - Review of Systems Constitutional: Normal. absent: Fevers Eyes: Normal ENT: Normal Respiratory: SOB. absent: Cough Cardiovascular: Normal. absent: Chest Pain Gastrointestinal: Normal. absent: Abdominal Pain, Diarrhea, Nausea, Vomiting Genitourinary Female: Normal. absent: Dysuria, Frequency, Hematuria, Urine Output Changes Musculoskeletal: Normal. absent: Back Pain, Neck Pain Skin: Normal. absent: Rash Neurological: Normal. absent: Headache, Dizziness Endocrine: Normal Hemo/Lymphatic: Normal Psychiatric: Normal Physical Exam Vital Signs Reviewed: Yes Vital Signs Temp Pulse Resp BP Pulse Ox 12/25/18 20:15 97.7 F 99 H 18 113/65 97 Temperature: Afebrile Blood Pressure: Normal Pulse: Regular Respiratory Rate: Normal Appearance: Positive for: Well-Appearing, Non-Toxic, Comfortable Pain Distress: None Mental Status: Positive for: Alert and Oriented X 3 - Systems Exam Head: Present: Atraumatic, Normocephalic Pupils: Present: PERRL Extroacular Muscles: Present: EOMI Conjunctiva: Present: Normal Mouth: Present: Moist Mucous Membranes Neck: Present: Normal Range of Motion Respiratory/Chest: Present: Wheezes, Other (Poor air entry bilaterally ). No: Respiratory Distress, Accessory Muscle Use Cardiovascular: Present: Regular Rate and Rhythm, Normal S1, S2. No: Murmurs Abdomen: No: Tenderness, Distention, Peritoneal Signs Back: Present: Normal Inspection Upper Extremity: Present: Normal Inspection. No: Cyanosis, Edema Lower Extremity: Present: Normal Inspection. No: Edema Neurological: Present: GCS=15, CN II-XII Intact, Speech Normal Skin: Present: Warm, Dry, Normal Color. No: Rashes Psychiatric: Present: Alert, Oriented x 3, Normal Insight, Normal Concentration Medical Decision Making ED Course and Treatment: 12/25/18 20:10 Impression: 53 year old female complaining of shortness of breath for the past 6 days. Plan: -- EKG -- CXR -- Labs, BNP, cardiac enzymes, D-dimer -- Rapid influenza -- Albuterol -- Reassess and disposition Prior Visits: Notes and results from previous visits were reviewed. Progress Notes: Reviewed EKG, sinus tachycardia at 104 bpm[address] Non-specific ST/T wave changes. 12/25/18 21:30 CXR reviewed, shows no acute processes. - Lab Interpretations Lab Results: D-Dimer, Quantitative < 200 ng/mlDDU (0-243) 12/25/18 20:30 Troponin I < 0.01 ng/mL 12/25/18 20:30 NT-Pro-B Natriuret Pep 71.6 pg/mL (0-450) 12/25/18 20:30 Total Bilirubin 0.7 mg/dL (0.2-1.3) 12/25/18 20:30 AST 39 U/L (14-36) H D 12/25/18 20:30 ALT < 6 U/L (7-56) L 12/25/18 20:30 Alkaline Phosphatase 45 U/L (38-126) 12/25/18 20:30 Total Protein 7.3 g/dL (5.8-8.3) 12/25/18 20:30 Albumin 4.2 g/dL (3.0-4.8) 12/25/18 20:30 Globulin 3.1 gm/dL 12/25/18 20:30 Albumin/Globulin Ratio 1.3 (1.1-1.8) 12/25/18 20:30 I have reviewed the lab results: Yes - RAD Interpretation Radiology Orders: 12/25/18 20:14 CHEST PORTABLE [RAD] Stat Ice Guard Tester: ED Physician - EKG Interpretation Interpreted by ED Physician: Yes Type: 12 lead EKG - Medication Orders Current Medication Orders: Discontinued Medications Albuterol/Ipratropium (Duoneb 3 Mg/0.5 Mg (3 Ml) Ud) 3 ml IH Q15M JUANITA Stop: 12/25/18 21:01 - Scribe Statement The provider has reviewed the documentation as recorded by the Scribe Tabatha Tapia All medical record entries made by the Scribe were at my direction and personally dictated by me. I have reviewed the chart and agree that the record accurately reflects my personal performance of the history, physical exam, medical decision making, and the department course for this patient. I have also personally directed, reviewed, and agree with the discharge instructions and disposition. Disposition/Present on Arrival - Present on Arrival Any Indicators Present on Arrival: No History of DVT/PE: No History of Uncontrolled Diabetes: No Urinary Catheter: No History of Decub. Ulcer: No History Surgical Site Infection Following: None - Disposition Have Diagnosis and Disposition been Completed?: Yes Diagnosis: Bronchitis Disposition: HOME/ ROUTINE Disposition Time: 23:30 Condition: GOOD Discharge Instructions (ExitCare): Acute Bronchitis Prescriptions: Benzonatate [Tessalon Perles] 100 mg PO BID #14 tab Albuterol HFA [Ventolin HFA] 1 puff IH QID #1 puff Azithromycin [Zithromax] 250 mg PO DAILY #4 tab Forms: [employer] (Italian)
[2018-12-25] MEDS ORDERED: Promethazine/Cod 6.25mg-10mg/5ml Syr UD PO STA (22:46)
[2018-12-26 00:20] VITALS: BP 110/60; PULSE 89; O2SAT 97
--- NOTE | 2018-12-26 14:22 | RAD ---
Date of service: 12/25/2018 HISTORY: COMPARISON: Comparison chest dated 11/20/2018 TECHNIQUE: 1 view obtained. FINDINGS: LUNGS: Poor inspiration with low lung volumes common crowded bronchovascular markings and mild bibasilar atelectasis left greater than right PLEURA: No significant pleural effusion identified, no pneumothorax apparent. CARDIOVASCULAR: No aortic atherosclerotic calcification present. Normal cardiac size. No pulmonary vascular congestion. OSSEOUS STRUCTURES: No significant abnormalities. VISUALIZED UPPER ABDOMEN: Normal. OTHER FINDINGS: None. IMPRESSION: Poor inspiration with low lung volumes common crowded bronchovascular markings and mild bibasilar atelectasis left greater than right
--- NOTE | 2018-12-27 07:18 | CARD ---
APPROVED REPORT Date of service: 12/25/2018 EKG Measurement Heart [id number] [place] [id number] <Conclusion> Sinus tachycardia Nonspecific T wave abnormality Abnormal ECG
== END 2018-12-25 23:30 | disposition home or self-care (01) ==
LOC: ED 20:06
DX: J40 Bronchitis, not specified as acute or chronic (principal); E78.5 Hyperlipidemia, unspecified; Z85.850 Personal history of malignant neoplasm of thyroid; E89.0 Postprocedural hypothyroidism; Z87.891 Personal history of nicotine dependence